=== PATIENT | female | born 1990 | race Caucasian/White ===

== ENCOUNTER 2017-02-19 20:37 | Emergency (ER) | payer OTHER ==
[~2017-02-19 20:37] MED LIST: ALBUTEROL HFA60 DOSE IN; BACTRIM DS1 TAB PO; CATAPRES0.2 MG PO; FLEXERIL PO; HYDROMORPHONE HC2 MG PO; NEURONTIN300 MG PO; OXYCONTIN CR10 MG PO; TRAZODONE HCL100 MG PO; ZOLOFT50 MG PO
--- NOTE | 2017-02-19 22:07 | ED ORDER SUMMARY ---
..... Patient: BROOK KERANEY OrderSheet [facility] VisitID: [id number] [place] [address] 26y, F Registration Date/Time: 02/19/2017 ORDER SHEET Weight: 131.5 kg (stated) Allergies: Amoxicillin, Compazine, Latex, Metformin, Methocarbamol, Morphine Sulfate, Phenergan GENERAL ORDERS: CBC w Diff Urgent (20:53 02/19/2017 HBivens A.R.N.P.) (Ack 20:54 CHagerty ER Probate Lawyer) (21:06 JQuivey R.N.) CMP Urgent (20:53 02/19/2017 HBivens A.R.N.P.) (Ack 20:54 CHagerty ER Probate Lawyer) (21:06 JQuivey R.N.) UA-Culture if indicated Urgent (20:53 02/19/2017 HBivens A.R.N.P.) (Ack 20:54 CHagerty ER Probate Lawyer) (20:58 JQuivey R.N.) Amylase Urgent (20:53 02/19/2017 HBivens A.R.N.P.) (Ack 20:54 CHagerty ER Probate Lawyer) (21:06 JQuivey R.N.) Lipase Urgent (20:53 02/19/2017 HBivens A.R.N.P.) (Ack 20:54 CHagerty ER Probate Lawyer) (21:06 JQuivey R.N.) Urine Urgent (20:53 02/19/2017 HBivens A.R.N.P.) (Ack 20:54 CHagerty ER Probate Lawyer) (20:58 JQuivey R.N.) Urine Drug Screen Urgent (20:53 02/19/2017 HBivens A.R.N.P.) (Ack 20:54 CHagerty ER Probate Lawyer) (20:58 JQuivey R.N.) MEDICATION ORDERS: Ibuprofen PO 800 mg (NOW) (22:46 02/19/2017 JQuivey R.N. verbal order read back to HBivens A.R.N.P.) (Ack 22:46 JQuivey R.N.) (22:48 JQuivey R.N.) IV FLUIDS: Toradol IV 30 mg (NOW) (20:53 02/19/2017 HBivens A.R.N.P.) (Ack 20:58 JQuivey R.N.) (21:09 JQuivey R.N.) Zofran IV 4 mg (NOW) (20:53 02/19/2017 HBivens A.R.N.P.) (Ack 20:58 JQuivey R.N.) (21:09 JQuivey R.N.) IV Saline Lock (20:53 02/19/2017 HBivens A.R.N.P.) (Ack 20:58 JQuivey R.N.) (21:06 JQuivey R.N.) Levofloxacin IV 500 mg/100mL (NOW) (22:06 02/19/2017 HBivens A.R.N.P.) (Ack 22:22 JQuivey R.N.) (22:42 JQuivey R.N.) ORDER SHEET NOTES: [Electronically signed by Flex Singleton R.N. (01:57 02/20/2017)] [Electronically signed by Naty Mello.R.N.P. (13:16 02/20/2017)] [Electronically locked/signed by Flex Singleton R.N. (01:57 02/20/2017)]
--- NOTE | 2017-02-19 22:07 | ED ORDER SUMMARY ---
..... Patient: BROOK KEARNEY OrderSheet [facility] VisitID: [id number] [place] [address] 26y, F Registration Date/Time: 02/19/2017 ORDER SHEET Weight: 131.5 kg (stated) Allergies: Amoxicillin, Compazine, Latex, Metformin, Methocarbamol, Morphine Sulfate, Phenergan GENERAL ORDERS: CBC w Diff Urgent (20:53 02/19/2017 HBivens A.R.N.P.) (Ack 20:54 CHagerty ER Crm Specialist) (21:06 JQuivey R.N.) CMP Urgent (20:53 02/19/2017 HBivens A.R.N.P.) (Ack 20:54 CHagerty ER Crm Specialist) (21:06 JQuivey R.N.) UA-Culture if indicated Urgent (20:53 02/19/2017 HBivens A.R.N.P.) (Ack 20:54 CHagerty ER Crm Specialist) (20:58 JQuivey R.N.) Amylase Urgent (20:53 02/19/2017 HBivens A.R.N.P.) (Ack 20:54 CHagerty ER Crm Specialist) (21:06 JQuivey R.N.) Lipase Urgent (20:53 02/19/2017 HBivens A.R.N.P.) (Ack 20:54 CHagerty ER Crm Specialist) (21:06 JQuivey R.N.) Urine Urgent (20:53 02/19/2017 HBivens A.R.N.P.) (Ack 20:54 CHagerty ER Crm Specialist) (20:58 JQuivey R.N.) Urine Drug Screen Urgent (20:53 02/19/2017 HBivens A.R.N.P.) (Ack 20:54 CHagerty ER Crm Specialist) (20:58 JQuivey R.N.) MEDICATION ORDERS: Ibuprofen PO 800 mg (NOW) (22:46 02/19/2017 JQuivey R.N. verbal order read back to HBivens A.R.N.P.) (Ack 22:46 JQuivey R.N.) (22:48 JQuivey R.N.) IV FLUIDS: Toradol IV 30 mg (NOW) (20:53 02/19/2017 HBivens A.R.N.P.) (Ack 20:58 JQuivey R.N.) (21:09 JQuivey R.N.) Zofran IV 4 mg (NOW) (20:53 02/19/2017 HBivens A.R.N.P.) (Ack 20:58 JQuivey R.N.) (21:09 JQuivey R.N.) IV Saline Lock (20:53 02/19/2017 HBivens A.R.N.P.) (Ack 20:58 JQuivey R.N.) (21:06 JQuivey R.N.) Levofloxacin IV 500 mg/100mL (NOW) (22:06 02/19/2017 HBivens A.R.N.P.) (Ack 22:22 JQuivey R.N.) (22:42 JQuivey R.N.) ORDER SHEET NOTES: [Electronically signed by Flex Singleton R.N. (01:57 02/20/2017)] [Electronically signed by Naty Mello.R.N.P. (13:16 02/20/2017)] [Electronically locked/signed by Flex Singleton R.N. (01:57 02/20/2017)]
--- NOTE | 2017-02-19 22:07 | ED CLINICAL REPORT ---
Clinical Report - Physicians/Mid Levels [facility] [address] [place] [address] 02/19/2017 20:37 Patient: BROOK KEARNEY Time Seen: 2042; upon arrival, initial patient contact, initial documentation, patient care assumed. Arrived- By private vehicle. Historian- patient. HISTORY OF PRESENT ILLNESS Chief Complaint: ABDOMINAL PAIN and FLANK PAIN. At its maximum, severity described as severe. When seen in the E.D., severity described as severe. Modifying factors- worsened by movement. Not relieved by anything. It is described as "pain". No radiation. It is described as located in the left upper quadrant and left abdomen and the left flank. This started years and is still present. It was abrupt in onset and has been constant. The patient has had nausea. No loss of appetite. She has had vomiting (x3 episodes today). No bilious emesis, feculent emesis, blood-tinged emesis, coffee-grounds emesis or frankly bloody emesis. No unusually dark emesis. She has had loose stools. This has occurred twice. No bloody, watery, mucous containing or blood-tinged diarrhea. No additional abdominal pain. (says she suffers from chronic abd issues to enlarged colon and spleen). No recent travel. Similar symptoms previously: Chronically, milder. Recent medical care: The patient was seen recently in the office. ( saw gi dr recently). REVIEW OF SYSTEMS No constipation, black stools, hematemesis, difficulty with urination or pain with urination. No urinary frequency, bloody stools, fever, chest pain or difficulty breathing. Denies current . All systems otherwise negative, except as recorded above. PAST HISTORY See nurses notes. PROBLEMS: Rheumatoid Arthritis. Dysfunctional Uterine Bleeding. Abnormal Liver Function Test. Mesenteric Lymphadenitis. DVT - Deep Venous Thrombosis. Atypical Chest Pain. Gastroenteritis. UTI - Urinary Tract Infection. Hypertension. Hip dysplasia. Obesity. Chronic Back Pain. Asthma. --20:54 Flex Singleton, RLuigiN. 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 No alcohol use or drug use. No recent travel. Is a local resident. FAMILY HISTORY Negative. ADDITIONAL NOTES The nursing notes have been reviewed with agreement regarding the chief complaint, HPI, ROS, PMH and patient medications and allergies. PHYSICAL EXAM Appearance: Alert. Oriented X3. No acute distress. Anxious. Eyes: Pupils equal, round and reactive to light. Eyes normal inspection. Neck: Normal inspection. Neck supple. CVS: Normal heart rate and rhythm. Heart sounds normal. Pulses normal. Respiratory: No respiratory distress. Breath sounds normal. Chest nontender. Abdomen: Soft. Mild tenderness in the left upper quadrant and left side of the abdomen. Bowel sounds normal. No organomegaly. No mass. Severely obese. Tenderness present. Back: Abnormal inspection. Mild CVA tenderness on the left. Skin: Skin warm and dry. Normal skin color. No rash. Normal skin turgor. Extremities: Extremities exhibit normal ROM. No lower extremity edema. Neuro: Oriented X 3. No motor deficit. No sensory deficit. LABS, X-RAYS, AND EKG Laboratory Tests: UA-Culture if indicated: (JAKY: 02/19/2017 20:50) ( [facility] [place] 02/19[place] 21:39) Final results Test Result Flag Units (Reference) URINE COLOR YELLOW URINE APPEARANCE SL CLOUDY URINE GLUCOSE NEGATIVE (NEGATIVE) URINE BILIRUBIN NEGATIVE (NEGATIVE) URINE KETONE NEGATIVE (NEGATIVE) URINE SPECIFIC GRAVITY >= 1.030 (1.010-1.030) URINE PH 6.0 (5.0-8.0) URINE PROTEIN TRACE (NEGATIVE) URINE UROBILINOGEN 0.2 EU/dL (0.2-1.0) URINE NITRITE POSITIVE (NEGATIVE) URINE BLOOD TRACE-LYSED (NEGATIVE) URINE LEUK ESTERASE POSITIVE (NEGATIVE) URINE RBC 3-5 rbc/hpf (0-1) URINE WBC 25-50 wbc/hpf (0-1) URINE EPITHELIAL CELLS 3-5 EPI/hpf (0-5) URINE BACTERIA MANY (4+) (NONE SEEN) URINE COMMENT CULTURE INDICATED URINE CULTURES ARE SET-UP BASED ON THE FOLLOWING CRITERIA:POSITIVE NITRITEPOSITIVE LEUKOCYTE ESTERASEGREATER THAN 10 WHITE BLOOD CELLSMODERATE (2+) OR GREATER BACTERIA Urine: (JAKY: 02/19/2017 20:50) ( Msg[place]cvd 02/19/2017 21:23) Final results Test Result Flag Units (Reference) URINE NEGATIVE CBC w Diff: (JAKY: 02/19/2017 21:02) ( MsgRcvd 02/19/2017 21:23) Final results Test Result Flag Units (Reference) WHITE BLOOD COUNT 14.4 H K/uL (4.5-11.5) RED BLOOD COUNT 5.29 H M/uL (4.00-5.20) HEMOGLOBIN 13.3 gm/dL (12.0-16.0) HEMATOCRIT 40.5 % (36.0-46.0) MEAN CELL VOLUME 77 L fL (80-100) MEAN CORPUSCULAR HGB 25 L pg (26-34) MEAN CORPUSCULAR HGB CONC 33 g/dL (31-37) RED CELL DISTRIBUTION WIDTH 15.3 H % (11.6-14.8) PLATELET COUNT 547 H K/uL (150-400) NEUTROPHIL % 66.4 % (50-75) LYMPH % 29.2 % (25-40) MONO % 4.0 % (3-14) EOSINOPHIL % 0.1 % (0-4) BASOPHIL % 0.3 % (0-2) Urine Drug Screen: (JAKY: 02/19/2017 20:50) ( MsgRcvd 02/19/2017 21:56) Final results Test Result Flag Units (Reference) AMPHETAMINE/METHAMPHETAMINE NEGATIVE (NEGATIVE) BARBITURATE NEGATIVE (NEGATIVE) BENZODIAZEPINE NEGATIVE (NEGATIVE) CANNABINOID NEGATIVE (NEGATIVE) COCAINE NEGATIVE (NEGATIVE) ECSTASY NEGATIVE (NEGATIVE) METHADONE NEGATIVE (NEGATIVE) OPIATE NEGATIVE (NEGATIVE) The urine drug screen is a qualitative screening test fordrug overdose and abuse. All screen results should beconsidered as presumptive.Drugs screened for are as follows:BenzodiazepinesCocaineAmphetamines/MetamphetaminesTHC (Tetrahydrocannabinol)OpiatesBarbituratesEcstasyMethadonePositive results are unconfirmed. For confirmation, notifythe lab for the specimen to be sent to the reference lab.All confirmations must be performed by a differentmethodology.The ingestion of natural herbal and plant productscontaining Ephedra/Ephedra metabolites can produce in urineone or more substances capable of cross reacting withamphetamine/methamphetamine immunoassays. These testsprovide a preliminary result only. A more specificalternative chemical method must be used to obtain aconfirmed analytical result. CMP: (JAKY: 02/19/2017 21:02) ( MsgRcvd 02/19/2017 21:44) Final results Test Result Flag Units (Reference) GLUCOSE 109 mg/dL (70-110) BUN 7 mg/dL (7-18) CREATININE 0.8 mg/dL (0.6-1.3) Estimated GFR >60 mL/min Estimated GFR- >60 mL/min Note: Persistent reduction over 3 months in eGFR<60 mL/min/1.73 m2 defines CKD. Patients with eGFR values>=60 mL/min/1.73 m2 may also have CKD if evidence ofpersistent proteinuria. Additional information may be foundat www.kidney.org. SODIUM 139 mmol/L (136-145) POTASSIUM 3.3 L mmol/L (3.5-5.1) CHLORIDE 103 mmol/L (98-107) CARBON DIOXIDE 19 L mmol/L (21-32) CALCIUM 9.3 mg/dL (8.5-10.1) TOTAL PROTEIN 8.6 H g/dL (6.4-8.2) ALBUMIN 3.9 g/dL (3.3-5.0) BILIRUBIN, TOTAL 0.4 mg/dL (0.0-1.0) ALKALINE PHOSPHATASE 139 H U/L (46-116) AST (SGOT) 98 H U/L (15-37) ALT (SGPT) 218 H U/L (12-78) LIPASE 123 U/L (73-393) AMYLASE 106 U/L (25-115) . PROGRESS AND PROCEDURES Course of Care: pt well known to er staff per nurses, pt is maxed out on narcotic/controlled substances here x2 in Aug 22 and April 22. Patient counseled in person regarding the patient's stable condition, test results and diagnosis. 21:57. Differential Diagnosis: I considered gastritis, gastroenteritis, acute appendicitis, diverticulitis, colon cancer, ulcerative colitis, Crohn's disease, biliary colic, cholecystitis, cholelithiasis, hepatitis, pancreatitis, common bile duct obstruction, splenic infarction, splenic abscess, hernia, urinary tract infection, ureterolithiasis, ovarian cyst, ovarian torsion, , ectopic , endometriosis and viral syndrome as a possible cause of abdominal pain in this patient. This is a partial list of diagnoses considered. Above considerations are based on history, physical exam and laboratory data. Differential diagnosis was discussed with patient. Disposition: Discharged home in good and improved condition (22:06). Condition: good and stable. CLINICAL IMPRESSION Acute pyelonephritis INSTRUCTIONS Alternate Tylenol (Acetaminophen) and Motrin (Ibuprofen) for fever, temperature greater than 101 degrees orally. Take according to label instructions. Drink plenty of fluids for the next 24 hours until better. Warnings: GENERAL WARNINGS: Return or contact your physician immediately if your condition worsens or changes unexpectedly, if not improving as expected, or if other problems arise. SPECIFICALLY, return if you develop pain in the abdomen, fever, the inability to keep fluids down, blood in vomitus, blood in diarrhea, fainting or lightheadedness. Prescription Medications: Zofran 4 mg: Take 1 orally every six hours as needed for nausea/vomiting. Dispense ten (10). No refills. Substitution is permissible. Cipro 500 mg: take 1 tab orally every 12 hours for 10 days. Dispense twenty (20). No refills. Substitution is permissible. Follow-up: Follow up with your doctor Tuesday even if well. Call for an appointment. Summary of care provided to patient. Understanding of the discharge instructions verbalized by patient. (Electronically signed by Naty Mello A.R.N.P. 02/20/2017 13:16)
--- NOTE | 2017-02-19 22:07 | ED NURSING NOTES ---
Clinical Report - Nurses [facility] [address] [place] [address] 02/19/2017 20:37 Patient: BROOK KEARNEY TRIAGE Triage time 20:43. Acuity: LEVEL 3. Chief Complaint: ABDOMINAL PAIN and LEFT-SIDED FLANK PAIN. 20:56. Alert. SEPSIS SCREEN: Sepsis Screen. Negative (no infection suspected/documented). --20:56 Flex Singleton R.N. 20:45 02/19/17. BP: 145/108. HR: 113. RR: 17. O2 saturation: 99%. Temp: 98.2 F (oral). Pain level now: 08/16. --20:56 Flex Singleton R.N. Chief Complaint: NAUSEA, VOMITING and DIARRHEA. --20:57 Flex Singleton R.N. Weight: 131.5 kg stated. Height/Length: 65 inches Per Patient. BMI: 48.3. --20:55 Flex Singleton R.N. Medications Albuterol Sulfate HFA Inhalation, as needed (neb used as well at times). Gabapentin Oral 300 mg, 3x a day. QUEtiapine Fumarate Oral. Sertraline HCl Oral 250mg at HS . TraZODone HCl Oral 200mg , at bedtime. --20:52 Flex Singleton R.N. Promethazine HCl Oral 25 mg, 4x a day. --20:52 Flex Singleton R.N. FentaNYL Transdermal 12mcg/hr, every 72 hours. --20:53 Flex Singleton R.N. Medication/allergy information source: the patient. --20:56 Flex Singleton R.N. Allergies Amoxicillin. Compazine. Latex. Metformin. Methocarbamol. Morphine Sulfate. Phenergan. Definite Moderate(hives, rash) --20:49 Flex Singleton R.N. History Arrived by private vehicle. Historian: patient. Accompanied by friend. Primary physician (Robert). Onset. (Patient reports ongoing problem). Treatment MEASUREMENT COORDINATOR: (Fentanyl patch). PAST MEDICAL HX: Immunizations: up-to-date. Last normal menstrual period was 1 week ago. SOCIAL HX: Current every day heavy tobacco smoker- less than 1 pack per day. No alcohol use or drug use. No infectious disease exposure. ABUSE ASSESSMENT: No report of abuse. FALL RISK ASSESSMENT: Fall risk assessment completed. No fall risk identified. NUTRITIONAL RISK ASSESSMENT: The nutritional risk assessment revealed no deficiencies. FUNCTIONAL ASSESSMENT: Functional assessment: no impairments noted. LEARNING NEEDS ASSESSMENT: The learning needs assessment revealed no barriers. SKIN INTEGRITY ASSESSMENT: Skin integrity risk assessment completed. No skin integrity risk identified. --20:56 Flex Singleton R.N. PROBLEMS: Rheumatoid Arthritis. Dysfunctional Uterine Bleeding. Abnormal Liver Function Test. Mesenteric Lymphadenitis. DVT - Deep Venous Thrombosis. Atypical Chest Pain. Gastroenteritis. UTI - Urinary Tract Infection. Hypertension. Hip dysplasia. Obesity. Chronic Back Pain. Asthma. --20:54 Flex Singleton R.N. Interventions ID band on patient. To treatment room. --20:56 Flex Singleton R.N. PHYSICAL ASSESSMENT 20:45. To room via wheelchair. Patient gowned. GENERAL / NEURO / PSYCH: Alert. Oriented X 4. HEENT: Mucous membranes are pink. RESPIRATORY: Respirations not labored. SKIN: Skin is warm and dry. ( Fentanyl patch on right chest). --20:50 Flex Singleton R.N. NURSING PROGRESS NOTES 20:44. Patient ID band checked for patient name and birthdate: patient confirmed. Clean catch urine collected with return of yellow-colored clear urine; sample sent to lab for urinalysis. Specimen labeled in the presence of the patient. --20:56 Flex Singleton R.N. 21:01 02/19/2017 Site #1 started via IV in the right wrist with an 20g angiocath, with aseptic technique and good blood return; one attempt. Blood drawn: rainbow set. Labeled in the presence of the patient and sent to the lab. Saline lock flushed with 10 mL saline. --21:06 Flex Singleton R.N. 21:03 02/19/2017 Zofran (Ondansetron HCl) IVP 4 mg given over 2 minute(s) via site #1. Allergies verified and confirmed 5 rights. IV patency established. IV site checked: no pain, redness, or swelling. IV flushed thoroughly pre- and post-medication administration. --21:09 Flex Singleton R.N. 21:05 02/19/2017 Toradol IVP 30 mg given over 2 minute(s) via site #1. Allergies verified and confirmed 5 rights. IV patency established. IV site checked: no pain, redness, or swelling. IV flushed thoroughly pre- and post-medication administration. --21:09 Flex Singleton R.N. 21:38 02/19/2017 Zofran IVP Response: symptoms have improved (pt reports nausea is better). --21:38 Flex Singleton R.N. The patient is calm and resting quietly. SKIN: Skin is warm and dry. Skin color within normal limits. --21:38 Flex Singleton R.N. 21:37 02/19/17. BP: 172/91. HR: 103. RR: 18. O2 saturation: 98% on room air. --21:38 Flex Singleton R.N. 22:37 02/19/2017 Started 500 mg of Levofloxacin IVPB in bag #1 100 mL; at 100 mL/hr over 1 hour(s) via site #1 via IV pump. Allergies verified and confirmed 5 rights. IV patency established. IV site checked: no pain, redness, or swelling. IV flushed thoroughly pre- and post-medication administration. --22:42 Flex Singleton R.N. 22:48 02/19/2017 Ibuprofen PO 800 mg given. Allergies verified and confirmed 5 rights. --22:48 Flex Singleton R.N. 23:34. The patient is calm and resting quietly. Overall patient status is improved- she states feels better. SKIN: Skin is warm and dry. Skin color within normal limits. --23:37 Flex Singleton R.N. DISPOSITION / DISCHARGE 23:25 02/19/2017 Levofloxacin IVPB Discontinued: bag #1 infused. Total amount infused: 100 mL. IV patency established. IV site checked: no pain, redness, or swelling. IV flushed thoroughly. --23:30 Flex Singleton R.N. 23:27 02/19/2017 Site #1 removed upon discharge. Catheter intact. Bandage applied. --23:30 Flex Singleton R.N. Departure time: 23:37. Condition at departure: stable. No learning barriers present. Discharge instructions provided and reviewed with the patient. Reviewed medication(s) side effects, precautions, dosing and course information. Prescription(s) given to the patient. Patient verbalized understanding. Written instructions provided in Kyrgyz. The patient was discharged home and accompanied by drainage inspector. She left the Emergency Department ambulatory and via private vehicle. [employer] Displays Analyst driving. FALL RISK ASSESSMENT: Fall risk assessment completed. No fall risk identified. --23:37 Flex Singleton R.N. 23:28 02/19/17. BP: 142/85. HR: 98. RR: 16. O2 saturation: 98%. Pain level now: 03/16. --23:37 Flex Singleton R.N. Locked/Released at 02/20/2017 1:57 by Flex Singleton R.N.
--- NOTE | 2017-02-19 22:07 | ED NURSING NOTES ---
Clinical Report - Nurses [facility] [address] [place] [address] 02/19/2017 20:37 Patient: BROOK KEARNEY TRIAGE Triage time 20:43. Acuity: LEVEL 3. Chief Complaint: ABDOMINAL PAIN and LEFT-SIDED FLANK PAIN. 20:56. Alert. SEPSIS SCREEN: Sepsis Screen. Negative (no infection suspected/documented). --20:56 Flex Singleton R.N. 20:45 02/19/17. BP: 145/108. HR: 113. RR: 17. O2 saturation: 99%. Temp: 98.2 F (oral). Pain level now: 08/16. --20:56 Flex Singleton R.N. Chief Complaint: NAUSEA, VOMITING and DIARRHEA. --20:57 Flex Singleton R.N. Weight: 131.5 kg stated. Height/Length: 65 inches Per Patient. BMI: 48.3. --20:55 Flex Singleton R.N. Medications Albuterol Sulfate HFA Inhalation, as needed (neb used as well at times). Gabapentin Oral 300 mg, 3x a day. QUEtiapine Fumarate Oral. Sertraline HCl Oral 250mg at HS . TraZODone HCl Oral 200mg , at bedtime. --20:52 Flex Singleton R.N. Promethazine HCl Oral 25 mg, 4x a day. --20:52 Flex Singleton R.N. FentaNYL Transdermal 12mcg/hr, every 72 hours. --20:53 Flex Singleton R.N. Medication/allergy information source: the patient. --20:56 Flex Singleton R.N. Allergies Amoxicillin. Compazine. Latex. Metformin. Methocarbamol. Morphine Sulfate. Phenergan. Definite Moderate(hives, rash) --20:49 Flex Singleton R.N. History Arrived by private vehicle. Historian: patient. Accompanied by friend. Primary physician (Robert). Onset. (Patient reports ongoing problem). Treatment CARPENTERS: (Fentanyl patch). PAST MEDICAL HX: Immunizations: up-to-date. Last normal menstrual period was 1 week ago. SOCIAL HX: Current every day heavy tobacco smoker- less than 1 pack per day. No alcohol use or drug use. No infectious disease exposure. ABUSE ASSESSMENT: No report of abuse. FALL RISK ASSESSMENT: Fall risk assessment completed. No fall risk identified. NUTRITIONAL RISK ASSESSMENT: The nutritional risk assessment revealed no deficiencies. FUNCTIONAL ASSESSMENT: Functional assessment: no impairments noted. LEARNING NEEDS ASSESSMENT: The learning needs assessment revealed no barriers. SKIN INTEGRITY ASSESSMENT: Skin integrity risk assessment completed. No skin integrity risk identified. --20:56 Flex Singleton R.N. PROBLEMS: Rheumatoid Arthritis. Dysfunctional Uterine Bleeding. Abnormal Liver Function Test. Mesenteric Lymphadenitis. DVT - Deep Venous Thrombosis. Atypical Chest Pain. Gastroenteritis. UTI - Urinary Tract Infection. Hypertension. Hip dysplasia. Obesity. Chronic Back Pain. Asthma. --20:54 Flex Singleton R.N. Interventions ID band on patient. To treatment room. --20:56 Flex Singleton R.N. PHYSICAL ASSESSMENT 20:45. To room via wheelchair. Patient gowned. GENERAL / NEURO / PSYCH: Alert. Oriented X 4. HEENT: Mucous membranes are pink. RESPIRATORY: Respirations not labored. SKIN: Skin is warm and dry. ( Fentanyl patch on right chest). --20:50 Flex Singleton R.N. NURSING PROGRESS NOTES 20:44. Patient ID band checked for patient name and birthdate: patient confirmed. Clean catch urine collected with return of yellow-colored clear urine; sample sent to lab for urinalysis. Specimen labeled in the presence of the patient. --20:56 Flex Singleton R.N. 21:01 02/19/2017 Site #1 started via IV in the right wrist with an 20g angiocath, with aseptic technique and good blood return; one attempt. Blood drawn: rainbow set. Labeled in the presence of the patient and sent to the lab. Saline lock flushed with 10 mL saline. --21:06 Flex Singleton R.N. 21:03 02/19/2017 Zofran (Ondansetron HCl) IVP 4 mg given over 2 minute(s) via site #1. Allergies verified and confirmed 5 rights. IV patency established. IV site checked: no pain, redness, or swelling. IV flushed thoroughly pre- and post-medication administration. --21:09 Flex Singleton R.N. 21:05 02/19/2017 Toradol IVP 30 mg given over 2 minute(s) via site #1. Allergies verified and confirmed 5 rights. IV patency established. IV site checked: no pain, redness, or swelling. IV flushed thoroughly pre- and post-medication administration. --21:09 Flex Singleton R.N. 21:38 02/19/2017 Zofran IVP Response: symptoms have improved (pt reports nausea is better). --21:38 Flex Singleton R.N. The patient is calm and resting quietly. SKIN: Skin is warm and dry. Skin color within normal limits. --21:38 Flex Singleton R.N. 21:37 02/19/17. BP: 172/91. HR: 103. RR: 18. O2 saturation: 98% on room air. --21:38 Flex Singleton R.N. 22:37 02/19/2017 Started 500 mg of Levofloxacin IVPB in bag #1 100 mL; at 100 mL/hr over 1 hour(s) via site #1 via IV pump. Allergies verified and confirmed 5 rights. IV patency established. IV site checked: no pain, redness, or swelling. IV flushed thoroughly pre- and post-medication administration. --22:42 Flex Singleton R.N. 22:48 02/19/2017 Ibuprofen PO 800 mg given. Allergies verified and confirmed 5 rights. --22:48 Flex Singleton R.N. 23:34. The patient is calm and resting quietly. Overall patient status is improved- she states feels better. SKIN: Skin is warm and dry. Skin color within normal limits. --23:37 Flex Singleton R.N. DISPOSITION / DISCHARGE 23:25 02/19/2017 Levofloxacin IVPB Discontinued: bag #1 infused. Total amount infused: 100 mL. IV patency established. IV site checked: no pain, redness, or swelling. IV flushed thoroughly. --23:30 Flex Singleton R.N. 23:27 02/19/2017 Site #1 removed upon discharge. Catheter intact. Bandage applied. --23:30 Flex Singleton R.N. Departure time: 23:37. Condition at departure: stable. No learning barriers present. Discharge instructions provided and reviewed with the patient. Reviewed medication(s) side effects, precautions, dosing and course information. Prescription(s) given to the patient. Patient verbalized understanding. Written instructions provided in Faroese. The patient was discharged home and accompanied by telephone directory distributor driver. She left the Emergency Department ambulatory and via private vehicle. Line Erector driving. FALL RISK ASSESSMENT: Fall risk assessment completed. No fall risk identified. --23:37 Flex Singleton R.N. 23:28 02/19/17. BP: 142/85. HR: 98. RR: 16. O2 saturation: 98%. Pain level now: 03/16. --23:37 Flex Singleton R.N. Locked/Released at 02/20/2017 1:57 by Flex Singleton R.N.
--- NOTE | 2017-02-20 13:17 | ED MAR SUMMARY ---
..... Medication Administration Record [facility] [address] [place] [address] Patient: BROOK KEARNEY Visit ID: [id number] 26y, F Weight: 131.5 kg Height/Length: 65 in BMI: 48.3 ALLERGIES: Amoxicillin, Compazine, Latex, Metformin, Methocarbamol, Morphine Sulfate, Phenergan Given 21:03 02/19/2017 Flex Singleton R.N. Medication Administered: ZOFRAN [IVP] (ONDANSETRON HCL), Dose: 4 mg IVP over 2 minute(s), Site: #1 right wrist. Medication Ordered: Zofran IV 4 mg (NOW). Given 21:05 02/19/2017 Flex Singleton R.N. Medication Administered: TORADOL [IVP], Dose: 30 mg IVP over 2 minute(s), Site: #1 right wrist. Medication Ordered: Toradol IV 30 mg (NOW). Start 22:37 02/19/2017 Flex Singleton R.NLuigi, Stop 23:25 02/19/2017 Flex Singleton R.N. Medication Administered: LEVOFLOXACIN [IVPB], Dose: 500 mg IVPB over 1 hour(s), Rate: 100 mL/hr, Dispensed: 100 mL bag, Site: #1 right wrist. Medication Ordered: Levofloxacin IV 500 mg/100mL (NOW). Given 22:48 02/19/2017 Flex Singleton R.N. Medication Administered: IBUPROFEN [PO], Dose: 800 mg PO. Medication Ordered: Ibuprofen PO 800 mg (NOW).
--- NOTE | 2017-02-20 13:17 | ED MAR SUMMARY ---
..... Medication Administration Record [facility] [address] [place] [address] Patient: BROOK KEARNEY Visit ID: [id number] 26y, F Weight: 131.5 kg Height/Length: 65 in BMI: 48.3 ALLERGIES: Amoxicillin, Compazine, Latex, Metformin, Methocarbamol, Morphine Sulfate, Phenergan Given 21:03 02/19/2017 Flex Singleton R.N. Medication Administered: ZOFRAN [IVP] (ONDANSETRON HCL), Dose: 4 mg IVP over 2 minute(s), Site: #1 right wrist. Medication Ordered: Zofran IV 4 mg (NOW). Given 21:05 02/19/2017 Flex Singleton R.N. Medication Administered: TORADOL [IVP], Dose: 30 mg IVP over 2 minute(s), Site: #1 right wrist. Medication Ordered: Toradol IV 30 mg (NOW). Start 22:37 02/19/2017 Flex Singleton R.NLuigi, Stop 23:25 02/19/2017 Flex Singleton R.N. Medication Administered: LEVOFLOXACIN [IVPB], Dose: 500 mg IVPB over 1 hour(s), Rate: 100 mL/hr, Dispensed: 100 mL bag, Site: #1 right wrist. Medication Ordered: Levofloxacin IV 500 mg/100mL (NOW). Given 22:48 02/19/2017 Flex Singleton R.N. Medication Administered: IBUPROFEN [PO], Dose: 800 mg PO. Medication Ordered: Ibuprofen PO 800 mg (NOW).
--- NOTE | 2017-02-20 13:17 | ED MED RECONCILIATION SUMMARY ---
Patient: BROOK KEARNEY Medication Reconciliation Report [facility] VisitID: [id number] [address] [place] [address] 26y, F Registration Date/Time: 02/19/2017 Weight: 131.5 kg Height/Length: 65 in. BMI: 48.3 ALLERGIES: Amoxicillin, Compazine, Latex, Metformin, Methocarbamol, Morphine Sulfate, Phenergan The patient's Home Medications are listed below: THE FOLLOWING MEDICATIONS NEED TO BE RECONCILED: Albuterol Sulfate HFA Inhalation, neb used as well at times FentaNYL Transdermal 12mcg/hr, every 72 hours Gabapentin Oral 300 mg, 3x a day Promethazine HCl Oral 25 mg, 4x a day QUEtiapine Fumarate Oral Sertraline HCl Oral 250mg at HS TraZODone HCl Oral 200mg , at bedtime The source(s) of the original Home Medication information: patient The following Medications were given to the patient in the Emergency Department: Zofran [IVP] IVP 4 mg, administered: 02/19/2017 9:03:00 PM Toradol [IVP] IVP 30 mg, administered: 02/19/2017 9:05:00 PM Levofloxacin [IVPB] IVPB bolus 0, then 500 mg 100 mL/hr, administered: 02/19/2017 10:37:00 PM Ibuprofen [PO] PO 800 mg, administered: 02/19/2017 10:48:00 PM The following Medications were prescribed to the patient: Zofran 4 mg: Take 1 orally every six hours as needed for nausea/vomiting. Dispense ten (10). No refills. Substitution is permissible. -- Naty Mello A.R.N.P. Cipro 500 mg: take 1 tab orally every 12 hours for 10 days. Dispense twenty (20). No refills. Substitution is permissible. -- Naty Mello A.R.N.P.
--- NOTE | 2017-02-20 13:17 | ED DISCHARGE INSTRUCTIONS ---
Patient: BROOK KEARNEY General Instructions [facility] VisitID: [id number] [place] [address] 26y, F Registration Date/Time: 02/19/2017 Acute pyelonephritis INSTRUCTIONS Alternate Tylenol (Acetaminophen) and Motrin (Ibuprofen) for fever, temperature greater than 101 degrees orally. Take according to label instructions. Drink plenty of fluids for the next 24 hours until better. Warnings: GENERAL WARNINGS: Return or contact your physician immediately if your condition worsens or changes unexpectedly, if not improving as expected, or if other problems arise. SPECIFICALLY, return if you develop pain in the abdomen, fever, the inability to keep fluids down, blood in vomitus, blood in diarrhea, fainting or lightheadedness. Prescription Medications: Zofran 4 mg: Take 1 orally every six hours as needed for nausea/vomiting. Dispense ten (10). No refills. Substitution is permissible. Cipro 500 mg: take 1 tab orally every 12 hours for 10 days. Dispense twenty (20). No refills. Substitution is permissible. Follow-up: Follow up with your doctor Tuesday even if well. Call for an appointment. Summary of care provided to patient. Understanding of the discharge instructions verbalized by patient. ADDITIONAL INFORMATION Kidney Infection [Adult, Female] An infection of the kidney is also called "pyelonephritis". It usually starts as a bladder infection ("cystitis") which spreads to the kidneys. Pyelonephritis is more serious than a bladder infection. It can cause severe illness if not treated properly. The usual symptoms include an aching pain in the back, side or lower abdomen. Other symptoms may include fever, chills, nausea, vomiting, an urge to urinate and a burning sensation when passing urine. Home Care: Stay home from work or school. Rest in bed until your fever breaks and you are feeling better. Drink lots of fluid (at least 6-8 glasses a day, unless you must restrict fluids for other medical reasons). This will force the medicine into your urinary system and flush the bacteria out of your body. Avoid sexual intercourse until you have finished all of your medicine and your symptoms have gone away. Avoid caffeine, alcohol and spicy foods which may irritate the kidney and bladder. You may use acetaminophen (Tylenol) or ibuprofen (Motrin, Advil) to control pain, unless another pain medicine was prescribed. [NOTE: If you have chronic liver or kidney disease or ever had a stomach ulcer or GI bleeding, talk with your doctor before using these medicines.] Follow Up with your doctor or as advised by our staff for a repeat urine test in 10 days. This will ensure that your infection is fully cleared. [NOTE: If you had an X-ray or CT scan, it will be reviewed by a specialist. You will be notified of any new findings that may affect your care.] Get Prompt Medical Attention if any of the following occur: Fever over 100.4F (38.0C) after 48 hours of treatment No improvement by the third day of treatment Increasing back or abdominal pain Repeated vomiting or inability to take oral medicine Weakness, dizziness or fainting Fever Control (Adult) A fever is a natural reaction of the body to an illness. In most cases, the temperature itself is not harmful. It actually helps the body fight infections. A fever does not need to be treated unless you feel very uncomfortable. Home Care If you feel warm, check your temperature. If you feel very uncomfortable and your temperature is at or higher than 100.4F (38C) oral, you may take acetaminophen (Tylenol) every 4 to 6 hours. If you cant take or keep down oral medicine, ask your pharmacist for Tylenol suppositories, which you can get without a prescription. If the fever does not respond to acetaminophen within 1 hour, take ibuprofen (Advil or Motrin). If this works, keep taking the ibuprofen every 6 to 8 hours. Note: If you have chronic liver or kidney disease or ever had a stomach ulcer or GI bleeding, talk with your doctor before using these medications. If either medication alone does not keep the fever down, you may alternate the two medicines every 3 to 4 hours, only if your healthcare provider has instructed you to do so. For example, take Motrin then wait 3 hours, take Tylenol then wait 3 hours, take Motrin, and so on. Follow your healthcare providers instructions exactly. Clothing: Keep clothing light because excess body heat is lost through the skin. The fever will go up if you wear extra layers or wrap in blankets. Fluids: Fever causes the body to lose water through evaporation. Drink plenty of fluids such as water, juice, clear sodas, katelynn georgiana, or lemonade. Do not use aspirin in anyone under 18 years of age who is ill with a fever. It can cause severe liver damage. Follow Up with your doctor or as advised by our staff if you do not get better after 48 hours. Get Prompt Medical Attention if any of the following occur: Fever does not get better after taking fever medication Fast or difficult breathing Earache, sinus pain, stiff or painful neck, headache, repeated diarrhea or vomiting You feel unusually irritable, drowsy, or confused A rash appears You feel weak or dizzy, or that you might faint Ondansetron Oral disintegrating tablet What is this medicine? ONDANSETRON (on GOPI se bro) is used to treat nausea and vomiting caused by chemotherapy. It is also used to prevent or treat nausea and vomiting after surgery. How should I use this medicine? These tablets are made to dissolve in the mouth. Do not try to push the tablet through the foil backing. With dry hands, peel away the foil backing and gently remove the tablet. Place the tablet in the mouth and allow it to dissolve, then swallow. While you may take these tablets with water, it is not necessary to do so. Talk to your vice president global digital marketing regarding the use of this medicine in children. Special care may be needed. What side effects may I notice from receiving this medicine? Side effects that you should report to your doctor or health career information specialist as soon as possible: allergic reactions like skin rash, itching or hives, swelling of the face, lips, or tongue breathing problems dizziness fast or irregular heartbeat feeling faint or lightheaded, falls fever and chills swelling of the hands and feet tightness in the chest Side effects that usually do not require medical attention (report to your doctor or health career information specialist if they continue or are bothersome): constipation or diarrhea headache What may interact with this medicine? Do not take this medicine with any of the following medications: -apomorphine -cisapride -dofetilide -dronedarone -pimozide -thioridazine -ziprasidone This medicine may also interact with the following medications: -carbamazepine -phenytoin -rifampicin -tramadol -other medicines that prolong the QT interval (cause an abnormal heart rhythm) What if I miss a dose? If you miss a dose, take it as soon as you can. If it is almost time for your next dose, take only that dose. Do not take double or extra doses. Where should I keep my medicine? Keep out of the reach of children. Store between 2 and 30 degrees C (36 and 86 degrees F). Throw away any unused medicine after the expiration date. What should I tell my health care provider before I take this medicine? They need to know if you have any of these conditions: heart disease history of irregular heartbeat liver disease low levels of magnesium or potassium in the blood an unusual or allergic reaction to ondansetron, granisetron, other medicines, foods, dyes, or preservatives or trying to get breast-feeding What should I watch for while using this medicine? Check with your doctor or health career information specialist as soon as you can if you have any sign of an allergic reaction. Ciprofloxacin Hydrochloride Oral tablet What is this medicine? CIPROFLOXACIN (sip valerie FLOX a sin) is a quinolone antibiotic. It is used to treat certain kinds of bacterial infections. It will not work for colds, flu, or other viral infections. How should I use this medicine? Take this medicine by mouth with a glass of water. Follow the directions on the prescription label. Take your medicine at regular intervals. Do not take your medicine more often than directed. Take all of your medicine as directed even if you think your are better. Do not skip doses or stop your medicine early. You can take this medicine with food or on an empty stomach. It can be taken with a meal that contains dairy or calcium, but do not take it alone with a dairy product, like milk or yogurt or calcium-fortified juice. A special MedGuide will be given to you by the pharmacist with each prescription and refill. Be sure to read this information carefully each time. Talk to your vice president global digital marketing regarding the use of this medicine in children. Special care may be needed. What side effects may I notice from receiving this medicine? Side effects that you should report to your doctor or health career information specialist as soon as possible: - allergic reactions like skin rash, itching or hives, swelling of the face, lips, or tongue - breathing problems - confusion, nightmares or hallucinations - feeling faint or lightheaded, falls - irregular heartbeat - joint, muscle or tendon pain or swelling - pain or trouble passing urine -persistent headache with or without blurred vision - redness, blistering, peeling or loosening of the skin, including inside the mouth - seizure - unusual pain, numbness, tingling, or weakness Side effects that usually do not require medical attention (report to your doctor or health career information specialist if they continue or are bothersome): - diarrhea - nausea or stomach upset - white patches or sores in the mouth What may interact with this medicine? Do not take this medicine with any of the following medications: cisapride droperidol terfenadine tizanidine This medicine may also interact with the following medications: antacids caffeine cyclosporin didanosine (ddI) buffered tablets or powder medicines for diabetes medicines for inflammation like ibuprofen, naproxen methotrexate multivitamins omeprazole phenytoin probenecid sucralfate theophylline warfarin What if I miss a dose? If you miss a dose, take it as soon as you can. If it is almost time for your next dose, take only that dose. Do not take double or extra doses. Where should I keep my medicine? Keep out of the reach of children. Store at room temperature below 30 degrees C (86 degrees F). Keep container tightly closed. Throw away any unused medicine after the expiration date. What should I tell my health care provider before I take this medicine? They need to know if you have any of these conditions: -bone problems -cerebral disease -joint problems -irregular heartbeat -kidney disease -liver disease -myasthenia gravis -seizure disorder -tendon problems -an unusual or allergic reaction to ciprofloxacin, other antibiotics or medicines, foods, dyes, or preservatives - or trying to get -breast-feeding What should I watch for while using this medicine? Tell your doctor or health career information specialist if your symptoms do not improve. Do not treat diarrhea with over the counter products. Contact your doctor if you have diarrhea that lasts more than 2 days or if it is severe and watery. You may get drowsy or dizzy. Do not drive, use machinery, or do anything that needs mental alertness until you know how this medicine affects you. Do not stand or sit up quickly, especially if you are an older patient. This reduces the risk of dizzy or fainting spells. This medicine can make you more sensitive to the sun. Keep out of the sun. If you cannot avoid being in the sun, wear protective clothing and use sunscreen. Do not use sun lamps or tanning beds/booths. Avoid antacids, aluminum, calcium, iron, magnesium, and zinc products for 6 hours before and 2 hours after taking a dose of this medicine. You have been given the following additional information: Pyelonephritis, Female (Adult) Fever Control (Adult) Ondansetron Oral disintegrating tablet Ciprofloxacin Hydrochloride Oral tablet (Electronically signed by Naty Mello A.R.N.P. 02/20/2017 13:16)
--- NOTE | 2017-02-20 13:17 | ED MED RECONCILIATION SUMMARY ---
Patient: BROOK KEARNEY Medication Reconciliation Report [facility] VisitID: [id number] [address] [place] [address] 26y, F Registration Date/Time: 02/19/2017 Weight: 131.5 kg Height/Length: 65 in. BMI: 48.3 ALLERGIES: Amoxicillin, Compazine, Latex, Metformin, Methocarbamol, Morphine Sulfate, Phenergan The patient's Home Medications are listed below: THE FOLLOWING MEDICATIONS NEED TO BE RECONCILED: Albuterol Sulfate HFA Inhalation, neb used as well at times FentaNYL Transdermal 12mcg/hr, every 72 hours Gabapentin Oral 300 mg, 3x a day Promethazine HCl Oral 25 mg, 4x a day QUEtiapine Fumarate Oral Sertraline HCl Oral 250mg at HS TraZODone HCl Oral 200mg , at bedtime The source(s) of the original Home Medication information: patient The following Medications were given to the patient in the Emergency Department: Zofran [IVP] IVP 4 mg, administered: 02/19/2017 9:03:00 PM Toradol [IVP] IVP 30 mg, administered: 02/19/2017 9:05:00 PM Levofloxacin [IVPB] IVPB bolus 0, then 500 mg 100 mL/hr, administered: 02/19/2017 10:37:00 PM Ibuprofen [PO] PO 800 mg, administered: 02/19/2017 10:48:00 PM The following Medications were prescribed to the patient: Zofran 4 mg: Take 1 orally every six hours as needed for nausea/vomiting. Dispense ten (10). No refills. Substitution is permissible. -- Naty Mello A.R.N.P. Cipro 500 mg: take 1 tab orally every 12 hours for 10 days. Dispense twenty (20). No refills. Substitution is permissible. -- Naty Mello A.R.N.P.
== END 2017-02-19 23:37 | disposition home or self-care (01) ==
LOC: ED SRH 20:37
DX: N10 Acute pyelonephritis (principal); I10 Essential (primary) hypertension; J45.909 Unspecified asthma, uncomplicated; Z79.899 Other long term (current) drug therapy; F17.210 Nicotine dependence, cigarettes, uncomplicated; Z88.1 Allergy status to other antibiotic agents; Z88.5 Allergy status to narcotic agent; Z88.8 Allergy status to other drugs, medicaments and biological substances; Z91.040 Latex allergy status
CPT/HCPCS: 90004; 90100; 90148; 90469; 92235; 92530; 92760; 92761; 92762; 92763; 92764; 92765; 92766; 92767; 93070; 95059

== ENCOUNTER 2017-04-27 18:05 | Emergency (ER) | payer OTHER ==
--- NOTE | 2017-04-27 19:05 | DIAGNOSTIC IMAGING REPORT ---
PROCEDURE: XR CHEST 1 VIEW INDICATION: VOMITING, SOB TECHNIQUE: Single view chest. 1851 hours COMPARISON: 07/16/2015 FINDINGS: Low lung volumes. Stable cardiomediastinal contour and central vessels without congestion. Right infrahilar atelectatic changes. No convincing consolidation, effusion, or pneumothorax. Intact osseous structures. IMPRESSION: 1. Given low lung volumes, no definite acute cardiopulmonary disease. 2. Right middle lobe atelectatic changes
--- NOTE | 2017-04-27 21:17 | ED ORDER SUMMARY ---
..... Patient: BROOK KEARNEY OrderSheet [facility] VisitID: [id number] [place] [address] 26y, F Registration Date/Time: 04/27/2017 ORDER SHEET Weight: 131.5 kg (stated) Allergies: Amoxicillin, Compazine, Latex, Metformin, Methocarbamol, Morphine Sulfate, Phenergan GENERAL ORDERS: Chest 1V Urgent (18:28 04/27/2017 Maria Esther GODFREY) (Ack 18:41 LNations ER Tech1) (18:50 MCampbell) Road Equipment Operator (Continuous) (18:28 04/27/2017 Maria Esther GODFREY) (Ack 18:29 LNations ER Tech1) (18:33 Nader R.N.) CBC w Diff Urgent (18:28 04/27/2017 Maria Esther GODFREY) (18:39 JRomanelli R.N.) (Ack 18:41 LNations ER Tech1) CMP Urgent (18:28 04/27/2017 Maria Esther GODFREY) (18:40 JRomanelli R.N.) (Ack 18:41 LNations ER Tech1) Amylase Urgent (18:28 04/27/2017 Maria Esther GODFREY) (18:40 JRomanelli R.N.) (Ack 18:41 LNations ER Tech1) Lipase Urgent (18:28 04/27/2017 Maria Esther GODFREY) (18:40 JRomanelli R.N.) (Ack 18:41 LNations ER Tech1) Urine Urgent (18:28 04/27/2017 Maria Esther GODFREY) (Ack 18:41 LNations ER Tech1) (20:45 CBradburn R.N.) Urine Drug Screen Urgent (18:28 04/27/2017 Maria Esther GODFREY) (Ack 18:41 LNations ER Tech1) (20:45 CBradburn R.N.) D-Dimer Urgent (18:28 04/27/2017 Maria Esther GODFREY) (18:40 JRomanelli R.N.) (Ack 18:41 LNations ER Tech1) Troponin-I Urgent (18:28 04/27/2017 Maria Esther GODFREY) (18:40 JRomanelli R.N.) (Ack 18:41 LNations ER Tech1) CPK Urgent (18:28 04/27/2017 Maria Esther GODFREY) (18:40 JRomanelli R.N.) (Ack 18:41 LNations ER Tech1) BNP Urgent (18:28 04/27/2017 Maria Esther GODFREY) (18:40 Audraelli R.N.) (Ack 18:41 LNations ER Tech1) UA-Culture if indicated Urgent (18:28 04/27/2017 Maria Esther GODFREY) (Ack 18:41 LNations ER Tech1) (20:45 CBradburn R.N.) EKG - ER Stat (18:28 04/27/2017 Maria Esther GODFREY) (18:39 Chano R.N.) (Ack 18:41 LNations ER Tech1) Pulse oximeter (18:04/27/2017 Maria Esther GODFREY) (18:33 Nader R.N.) MEDICATION ORDERS: Albuterol Neb Tx 1 unit dose (NOW) (20:51 04/27/2017 Maria Esther GODFREY) (21:12 CBradburn R.N.) Acetaminophen PO 1,000 mg (NOW) (20:51 04/27/2017 Maria Esther GODFREY) (Ack 20:53 Preet R.N.) (21:13 Preet R.N.) IV FLUIDS: IV Saline Lock (18:04/27/2017 Maria Esther GODFREY) (18:42 Chano R.N.) Zofran IV 4 mg (NOW) (20:51 04/27/2017 Maria Esther GODFREY) (Ack 20:53 Preet R.N.) (21:13 Preet R.N.) Solu-MEDROL IV 125 mg (NOW) (20:51 04/27/2017 Maria Esther GODFREY) (Ack 20:53 Preet R.N.) (21:14 CHANNINGradburn R.N.) ORDER SHEET NOTES: [Electronically signed by Veronica Alves R.N. (22:17 04/27/2017)] [Electronically signed by Sharath Woods MD (21:30 04/28/2017)] [Electronically locked/signed by Veronica Alves R.N. (22:17 04/27/2017)]
--- NOTE | 2017-04-27 21:17 | ED ORDER SUMMARY ---
..... Patient: BROOK KEARNEY OrderSheet [facility] VisitID: [id number] [place] [address] 26y, F Registration Date/Time: 04/27/2017 ORDER SHEET Weight: 131.5 kg (stated) Allergies: Amoxicillin, Compazine, Latex, Metformin, Methocarbamol, Morphine Sulfate, Phenergan GENERAL ORDERS: Chest 1V Urgent (18:28 04/27/2017 Maria Esther GODFREY) (Ack 18:41 LNations ER Tech1) (18:50 MCampbell) Machine Sweeper Brush Maker (Continuous) (18:28 04/27/2017 Maria Esther GODFREY) (Ack 18:29 LNations ER Tech1) (18:33 Nader R.N.) CBC w Diff Urgent (18:28 04/27/2017 Maria Esther GODFREY) (18:39 JRomanelli R.N.) (Ack 18:41 LNations ER Tech1) CMP Urgent (18:28 04/27/2017 Maria Esther GODFREY) (18:40 JRomanelli R.N.) (Ack 18:41 LNations ER Tech1) Amylase Urgent (18:28 04/27/2017 Maria Esther GODFREY) (18:40 JRomanelli R.N.) (Ack 18:41 LNations ER Tech1) Lipase Urgent (18:28 04/27/2017 Maria Esther GODFREY) (18:40 JRomanelli R.N.) (Ack 18:41 LNations ER Tech1) Urine Urgent (18:28 04/27/2017 Maria Esther GODFREY) (Ack 18:41 LNations ER Tech1) (20:45 CBradburn R.N.) Urine Drug Screen Urgent (18:28 04/27/2017 Maria Esther GODFREY) (Ack 18:41 LNations ER Tech1) (20:45 CBradburn R.N.) D-Dimer Urgent (18:28 04/27/2017 Maria Esther GODFREY) (18:40 JRomanelli R.N.) (Ack 18:41 LNations ER Tech1) Troponin-I Urgent (18:28 04/27/2017 Maria Esther GODFREY) (18:40 JRomanelli R.N.) (Ack 18:41 LNations ER Tech1) CPK Urgent (18:28 04/27/2017 Maria Esther GODFREY) (18:40 JRomanelli R.N.) (Ack 18:41 LNations ER Tech1) BNP Urgent (18:28 04/27/2017 Maria Esther GODFREY) (18:40 Audraelli R.N.) (Ack 18:41 LNations ER Tech1) UA-Culture if indicated Urgent (18:28 04/27/2017 Maria Esther GODFREY) (Ack 18:41 LNations ER Tech1) (20:45 CBradburn R.N.) EKG - ER Stat (18:28 04/27/2017 Maria Esther GODFREY) (18:39 Chano R.N.) (Ack 18:41 LNations ER Tech1) Pulse oximeter (18:04/27/2017 Maria Esther GODFREY) (18:33 Nader R.N.) MEDICATION ORDERS: Albuterol Neb Tx 1 unit dose (NOW) (20:51 04/27/2017 Maria Esther GODFREY) (21:12 CBradburn R.N.) Acetaminophen PO 1,000 mg (NOW) (20:51 04/27/2017 Maria Esther GODFREY) (Ack 20:53 Preet R.N.) (21:13 Preet R.N.) IV FLUIDS: IV Saline Lock (18:04/27/2017 Maria Esther GODFREY) (18:42 Chano R.N.) Zofran IV 4 mg (NOW) (20:51 04/27/2017 Maria Esther GODFREY) (Ack 20:53 Preet R.N.) (21:13 Preet R.N.) Solu-MEDROL IV 125 mg (NOW) (20:51 04/27/2017 Maria Esther GODFREY) (Ack 20:53 Preet R.N.) (21:14 CHANNINGradburn R.N.) ORDER SHEET NOTES: [Electronically signed by Veronica Alves R.N. (22:17 04/27/2017)] [Electronically signed by Sharath Woods MD (21:30 04/28/2017)] [Electronically locked/signed by Veronica Alves R.N. (22:17 04/27/2017)]
--- NOTE | 2017-04-27 21:17 | ED CLINICAL REPORT ---
Clinical Report - Physicians/Mid Levels [facility] [address] [place] [address] 04/27/2017 18:04 Patient: BROOK KEARNEY Time Seen: 18:25. Arrived- By private vehicle. Historian- patient. HISTORY OF PRESENT ILLNESS Chief Complaint: DYSPNEA and HISTORY OF ASTHMA. This started about 2 days ago and is still present. It was gradual in onset and has been constant and waxing/waning. The dyspnea is severe. The patient has had a cough, fever, wheezing and chills and experienced sweating episodes. No sputum production, calf pain or foot swelling. REVIEW OF SYSTEMS The patient has had fever, chills, chest pain and a cough and experienced sweats. No abdominal pain, constipation, diarrhea, nausea or vomiting. All systems otherwise negative, except as recorded above. PAST HISTORY Medications: Albuterol Sulfate HFA Inhalation, as needed (neb used as well at times). FentaNYL Transdermal 12mcg/hr, every 72 hours. Gabapentin Oral 300 mg, 3x a day. Promethazine HCl Oral 25 mg, 4x a day. QUEtiapine Fumarate Oral. Sertraline HCl Oral 250mg at HS . TraZODone HCl Oral 200mg , at bedtime. Allergies: Amoxicillin. Compazine. Latex. Metformin. Methocarbamol. Morphine Sulfate. Phenergan. Definite Moderate(hives, rash). SOCIAL HISTORY Current every day heavy tobacco smoker (cigarette)- less than 1 pack per day (vapes). No alcohol use or drug use. FAMILY HISTORY Denies family medical history. ADDITIONAL NOTES The nursing notes have been reviewed. PHYSICAL EXAM Vital Signs: 04/27/2017 18:08 BP: 138/94. HR: 116. RR: 23. O2 saturation: 97%. Temp: 98.3 F. Pain level now: 10/10. Have been reviewed. Appearance: Alert. Eyes: Pupils equal, round and reactive to light. ENT: Pharyngeal erythema. Hoarse voice. Pharynx normal. Neck: Normal inspection. No jugular venous distention. CVS: Normal heart rate and rhythm. Heart sounds normal. Respiratory: Prolonged expirations. Decreased air movement. Wheezing present. (rattle over large airways that clears with cough). Abdomen: Soft and nontender. No organomegaly. Obese. Back: Normal inspection. No CVA tenderness. Skin: Skin warm and dry. Normal skin color. Normal skin turgor. Extremities: Extremities exhibit normal ROM. No calf tenderness. No lower extremity edema. LABS, X-RAYS, AND EKG EKG: Rate: 111. Prior EKG unavailable. The study has been independently viewed by me. Chest X-ray: (IMPRESSION: 1. Given low lung volumes, no definite acute cardiopulmonary disease. 2. Right middle lobe atelectatic changes). The X-rays were interpreted by the radiologist and contemporaneously by me. Laboratory Tests: UA-Culture if indicated: (JAKY: 04/27/2017 20:39) ( [facility] 04/27/2017 21:10) IP Test Result Flag Units (Reference) URINE COLOR YELLOW URINE APPEARANCE CLEAR URINE GLUCOSE NEGATIVE (NEGATIVE) URINE BILIRUBIN NEGATIVE (NEGATIVE) URINE KETONE NEGATIVE (NEGATIVE) URINE SPECIFIC GRAVITY 1.015 (1.010-1.030) URINE PH 8.5 H (5.0-8.0) URINE PROTEIN NEGATIVE (NEGATIVE) URINE UROBILINOGEN 0.2 EU/dL (0.2-1.0) URINE NITRITE NEGATIVE (NEGATIVE) URINE BLOOD NEGATIVE (NEGATIVE) URINE LEUK ESTERASE POSITIVE (NEGATIVE) Urine: (JAKY: 04/27/2017 20:39) ( [facility] 04/27/2017 21:11) Final results Test Result Flag Units (Reference) URINE NEGATIVE CBC w Diff: (JAKY: 04/27/2017 18:25) ( [facility] 04/27/2017 19:56) Final results Test Result Flag Units (Reference) WHITE BLOOD COUNT 14.4 H K/uL (4.5-11.5) RED BLOOD COUNT 4.79 M/uL (4.00-5.20) HEMOGLOBIN 11.8 L gm/dL (12.0-16.0) HEMATOCRIT 35.9 L % (36.0-46.0) MEAN CELL VOLUME 75 L fL (80-100) MEAN CORPUSCULAR HGB 25 L pg (26-34) MEAN CORPUSCULAR HGB CONC 33 g/dL (31-37) RED CELL DISTRIBUTION WIDTH 15.1 H % (11.6-14.8) PLATELET COUNT 392 K/uL (150-400) NEUTROPHIL % 84.8 H % (50-75) LYMPH % 10.9 L % (25-40) MONO % 2.5 L % (3-14) EOSINOPHIL % 1.4 % (0-4) BASOPHIL % 0.4 % (0-2) [id number]: (JAKY: 04/27/2017 18:25) ( [facility] 04/27/2017 20:05) Final results Test Result Flag Units (Reference) D-DIMER QUANTITATIVE 0.46 ug/mLFEU (0.27-0.52) The primary value of this quantitative assay relates toits negative predictive value (i.e. exclusion) of pulmonaryembolism/deep vein thrombosis/DIC.Elevated levels of d-dimer may also occur with:, age, cancer, inflammation, liver disease,post-op, infection, hematoma, coronary disease, peripheralarteriopathy, bleeding disorders and thrombolytic treatment.Results should be correlated with other clinical andradiological data.Testing Methodology: Latex Immunoassay BNP: (JAKY: 04/27/2017 18:25) ( [facility] 04/27/2017 20:29) Final results Test Result Flag Units (Reference) B-TYPE NATRIURETIC PEPTIDE 304 H pg/ml (5-100) CMP: (JAKY: 04/27/2017 18:25) ( [facility] 04/27/[place] 20:27) Final results Test Result Flag Units (Reference) GLUCOSE 127 H mg/dL (70-110) BUN 6 L mg/dL (7-18) CREATININE 0.9 mg/dL (0.6-1.3) Estimated GFR >60 mL/min Estimated GFR- >60 mL/min Note: Persistent reduction over 3 months in eGFR<60 mL/min/1.73 m2 defines CKD. Patients with eGFR values>=60 mL/min/1.73 m2 may also have CKD if evidence ofpersistent proteinuria. Additional information may be foundat www.kidney.org. SODIUM 125 L mmol/L (136-145) POTASSIUM 3.5 mmol/L (3.5-5.1) CHLORIDE 97 L mmol/L (98-107) CARBON DIOXIDE 29 mmol/L (21-32) CALCIUM 9.2 mg/dL (8.5-10.1) TOTAL PROTEIN 8.1 g/dL (6.4-8.2) ALBUMIN 3.4 g/dL (3.3-5.0) BILIRUBIN, TOTAL 0.4 mg/dL (0.0-1.0) ALKALINE PHOSPHATASE 137 H U/L (46-116) AST (SGOT) 44 H U/L (15-37) ALT (SGPT) 68 U/L (12-78) LIPASE 61 L U/L (73-393) AMYLASE 26 U/L (25-115) CPK 82 U/L (24-260) TROPONIN I <0.05 L ng/mL (0.00-1.5) TROPONIN REFERENCE RANGE:<0.1 NEGATIVE0.1-1.5 INDETERMINANT>1.5 POSITIVE . PROGRESS AND PROCEDURES Patient/family counseled. CLINICAL IMPRESSION Fever Asthma. Acute bronchitis. INSTRUCTIONS Do not smoke. Seek medical help to quit smoking. Warnings: Further evaluation is necessary. GENERAL WARNINGS: Return or contact your physician immediately if your condition worsens or changes unexpectedly, if not improving as expected, or if other problems arise. Prescription Medications: Albuterol HFA oral inhaler: inhale 2 puffs via spacer every 4 hours. Dispense one (1) unit. No refill. Prednisone 20 mg: take 3 orally every day for 5 days. Dispense fifteen (15). No refills. Zithromax 250 mg tablets: take 2 orally today, followed by 1 daily for the next 4 days. No refills. Substitution is permissible. OTC Medications: Acetaminophen (available over the counter): take according to label instructions. Motrin (available over the counter): take according to label instructions. Follow-up: Follow up with your doctor in five days. Call for an appointment. Understanding of the discharge instructions verbalized by patient. (Electronically signed by Sharath Woods MD 04/28/2017 21:30)
--- NOTE | 2017-04-27 21:17 | ED CLINICAL REPORT ---
Clinical Report - Physicians/Mid Levels [facility] [address] [place] [address] 04/27/2017 18:04 Patient: BROOK KEARNEY Time Seen: 18:25. Arrived- By private vehicle. Historian- patient. HISTORY OF PRESENT ILLNESS Chief Complaint: DYSPNEA and HISTORY OF ASTHMA. This started about 2 days ago and is still present. It was gradual in onset and has been constant and waxing/waning. The dyspnea is severe. The patient has had a cough, fever, wheezing and chills and experienced sweating episodes. No sputum production, calf pain or foot swelling. REVIEW OF SYSTEMS The patient has had fever, chills, chest pain and a cough and experienced sweats. No abdominal pain, constipation, diarrhea, nausea or vomiting. All systems otherwise negative, except as recorded above. PAST HISTORY Medications: Albuterol Sulfate HFA Inhalation, as needed (neb used as well at times). FentaNYL Transdermal 12mcg/hr, every 72 hours. Gabapentin Oral 300 mg, 3x a day. Promethazine HCl Oral 25 mg, 4x a day. QUEtiapine Fumarate Oral. Sertraline HCl Oral 250mg at HS . TraZODone HCl Oral 200mg , at bedtime. Allergies: Amoxicillin. Compazine. Latex. Metformin. Methocarbamol. Morphine Sulfate. Phenergan. Definite Moderate(hives, rash). SOCIAL HISTORY Current every day heavy tobacco smoker (cigarette)- less than 1 pack per day (vapes). No alcohol use or drug use. FAMILY HISTORY Denies family medical history. ADDITIONAL NOTES The nursing notes have been reviewed. PHYSICAL EXAM Vital Signs: 04/27/2017 18:08 BP: 138/94. HR: 116. RR: 23. O2 saturation: 97%. Temp: 98.3 F. Pain level now: 10/10. Have been reviewed. Appearance: Alert. Eyes: Pupils equal, round and reactive to light. ENT: Pharyngeal erythema. Hoarse voice. Pharynx normal. Neck: Normal inspection. No jugular venous distention. CVS: Normal heart rate and rhythm. Heart sounds normal. Respiratory: Prolonged expirations. Decreased air movement. Wheezing present. (rattle over large airways that clears with cough). Abdomen: Soft and nontender. No organomegaly. Obese. Back: Normal inspection. No CVA tenderness. Skin: Skin warm and dry. Normal skin color. Normal skin turgor. Extremities: Extremities exhibit normal ROM. No calf tenderness. No lower extremity edema. LABS, X-RAYS, AND EKG EKG: Rate: 111. Prior EKG unavailable. The study has been independently viewed by me. Chest X-ray: (IMPRESSION: 1. Given low lung volumes, no definite acute cardiopulmonary disease. 2. Right middle lobe atelectatic changes). The X-rays were interpreted by the radiologist and contemporaneously by me. Laboratory Tests: UA-Culture if indicated: (JAKY: 04/27/2017 20:39) ( [facility] 04/27/2017 21:10) IP Test Result Flag Units (Reference) URINE COLOR YELLOW URINE APPEARANCE CLEAR URINE GLUCOSE NEGATIVE (NEGATIVE) URINE BILIRUBIN NEGATIVE (NEGATIVE) URINE KETONE NEGATIVE (NEGATIVE) URINE SPECIFIC GRAVITY 1.015 (1.010-1.030) URINE PH 8.5 H (5.0-8.0) URINE PROTEIN NEGATIVE (NEGATIVE) URINE UROBILINOGEN 0.2 EU/dL (0.2-1.0) URINE NITRITE NEGATIVE (NEGATIVE) URINE BLOOD NEGATIVE (NEGATIVE) URINE LEUK ESTERASE POSITIVE (NEGATIVE) Urine: (JAKY: 04/27/2017 20:39) ( [facility] 04/27/2017 21:11) Final results Test Result Flag Units (Reference) URINE NEGATIVE CBC w Diff: (JAKY: 04/27/2017 18:25) ( [facility] 04/27/2017 19:56) Final results Test Result Flag Units (Reference) WHITE BLOOD COUNT 14.4 H K/uL (4.5-11.5) RED BLOOD COUNT 4.79 M/uL (4.00-5.20) HEMOGLOBIN 11.8 L gm/dL (12.0-16.0) HEMATOCRIT 35.9 L % (36.0-46.0) MEAN CELL VOLUME 75 L fL (80-100) MEAN CORPUSCULAR HGB 25 L pg (26-34) MEAN CORPUSCULAR HGB CONC 33 g/dL (31-37) RED CELL DISTRIBUTION WIDTH 15.1 H % (11.6-14.8) PLATELET COUNT 392 K/uL (150-400) NEUTROPHIL % 84.8 H % (50-75) LYMPH % 10.9 L % (25-40) MONO % 2.5 L % (3-14) EOSINOPHIL % 1.4 % (0-4) BASOPHIL % 0.4 % (0-2) [id number]: (JAKY: 04/27/2017 18:25) ( [facility] 04/27/2017 20:05) Final results Test Result Flag Units (Reference) D-DIMER QUANTITATIVE 0.46 ug/mLFEU (0.27-0.52) The primary value of this quantitative assay relates toits negative predictive value (i.e. exclusion) of pulmonaryembolism/deep vein thrombosis/DIC.Elevated levels of d-dimer may also occur with:, age, cancer, inflammation, liver disease,post-op, infection, hematoma, coronary disease, peripheralarteriopathy, bleeding disorders and thrombolytic treatment.Results should be correlated with other clinical andradiological data.Testing Methodology: Latex Immunoassay BNP: (JAKY: 04/27/2017 18:25) ( [facility] 04/27/2017 20:29) Final results Test Result Flag Units (Reference) B-TYPE NATRIURETIC PEPTIDE 304 H pg/ml (5-100) CMP: (JAKY: 04/27/2017 18:25) ( [facility]27) Final results Test Result Flag Units (Reference) GLUCOSE 127 H mg/dL (70-110) BUN 6 L mg/dL (7-18) CREATININE 0.9 mg/dL (0.6-1.3) Estimated GFR >60 mL/min Estimated GFR- >60 mL/min Note: Persistent reduction over 3 months in eGFR<60 mL/min/1.73 m2 defines CKD. Patients with eGFR values>=60 mL/min/1.73 m2 may also have CKD if evidence ofpersistent proteinuria. Additional information may be foundat www.kidney.org. SODIUM 125 L mmol/L (136-145) POTASSIUM 3.5 mmol/L (3.5-5.1) CHLORIDE 97 L mmol/L (98-107) CARBON DIOXIDE 29 mmol/L (21-32) CALCIUM 9.2 mg/dL (8.5-10.1) TOTAL PROTEIN 8.1 g/dL (6.4-8.2) ALBUMIN 3.4 g/dL (3.3-5.0) BILIRUBIN, TOTAL 0.4 mg/dL (0.0-1.0) ALKALINE PHOSPHATASE 137 H U/L (46-116) AST (SGOT) 44 H U/L (15-37) ALT (SGPT) 68 U/L (12-78) LIPASE 61 L U/L (73-393) AMYLASE 26 U/L (25-115) CPK 82 U/L (24-260) TROPONIN I <0.05 L ng/mL (0.00-1.5) TROPONIN REFERENCE RANGE:<0.1 NEGATIVE0.1-1.5 INDETERMINANT>1.5 POSITIVE . PROGRESS AND PROCEDURES Patient/family counseled. CLINICAL IMPRESSION Fever Asthma. Acute bronchitis. INSTRUCTIONS Do not smoke. Seek medical help to quit smoking. Warnings: Further evaluation is necessary. GENERAL WARNINGS: Return or contact your physician immediately if your condition worsens or changes unexpectedly, if not improving as expected, or if other problems arise. Prescription Medications: Albuterol HFA oral inhaler: inhale 2 puffs via spacer every 4 hours. Dispense one (1) unit. No refill. Prednisone 20 mg: take 3 orally every day for 5 days. Dispense fifteen (15). No refills. Zithromax 250 mg tablets: take 2 orally today, followed by 1 daily for the next 4 days. No refills. Substitution is permissible. OTC Medications: Acetaminophen (available over the counter): take according to label instructions. Motrin (available over the counter): take according to label instructions. Follow-up: Follow up with your doctor in five days. Call for an appointment. Understanding of the discharge instructions verbalized by patient. (Electronically signed by Sharath Woods MD 04/28/2017 21:30)
--- NOTE | 2017-04-27 21:17 | ED NURSING NOTES ---
Clinical Report - Nurses [facility] [address] [place] [address] 04/27/2017 18:04 Patient: BROOK KEARNEY TRIAGE Triage time 18:08. Acuity: LEVEL 3. Chief Complaint: DIFFICULTY BREATHING and "ASTHMA ATTACK". Alert. AYDEE COMA SCORE: [place] Coma Scale: 15- eyes open spontaneously (4); best verbal response- oriented x 4 (5); best motor response- obeys commands (6). --18:27 Maxim Shen R.N. 18:08 04/27/17. BP: 138/94. HR: 116. RR: 23. O2 saturation: 97%. Temp: 98.3 F (temporal). Pain level now: 08/16. --18:27 Maxim Shen R.N. Weight: 131.5 kg stated. Height/Length: 65 inches Per Patient. BMI: 48.3. --18:15 Maxim Shen R.N. Medications Albuterol Sulfate HFA Inhalation, as needed (neb used as well at times). FentaNYL Transdermal 12mcg/hr, every 72 hours. Gabapentin Oral 300 mg, 3x a day. Promethazine HCl Oral 25 mg, 4x a day. QUEtiapine Fumarate Oral. Sertraline HCl Oral 250mg at HS . TraZODone HCl Oral 200mg , at bedtime. --18:10 Maxim Shen R.N. Medication/allergy information source: other. --18:27 Maxim Shen R.N. Allergies Amoxicillin. Compazine. Latex. Metformin. Methocarbamol. Morphine Sulfate. Phenergan. Definite Moderate(hives, rash) --18:10 Maxim Shen R.N. History Arrived by private vehicle. Historian: patient. Accompanied by friend. Primary physician (Robert). This started today. ( took 3 doses of "nighttime"cold medicine today, emesis in ED room, pt says she has been sick for 2 days and has had a fever and vomiting has a 12 mcg and a 25 mcg Fentanyl patch on, says she has extra patch on because her pain is worse). 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 PAST MEDICAL HX: Last normal menstrual period- April 2017. SOCIAL HX: Heavy tobacco smoker- less than 1 pack per day (vapes). No alcohol use or drug use. FUNCTIONAL ASSESSMENT: Functional assessment: no impairments noted. LEARNING NEEDS ASSESSMENT: The learning needs assessment revealed no barriers. FALL RISK ASSESSMENT: Fall risk assessment completed. Risk factors identified include patient impairment of mobility. Fall interventions initiated. Patient placed on stretcher. Side rails up x2. Brakes on Bed in low position. Multimedia Educational Specialist at bedside. --18:27 Maxim Shen R.N. PROBLEMS: Pyelonephritis. Nausea. Gastritis. Lupus. Smoker. Rheumatoid Arthritis. Dysfunctional Uterine Bleeding. Abnormal Liver Function Test. Mesenteric Lymphadenitis. Dental Pain. Vaginal Bleeding. DVT - Deep Venous Thrombosis. Atypical Chest Pain. Dysmenorrhea. Acute Pain. Constipation. Abrasion(s). Narcotic Withdrawal. Back Pain. Hypokalemia. Leukocytosis. Peptic Ulcer Disease. Abdominal Pain. Rectal Bleed. Diarrhea. Vomiting. Gastroenteritis. Immunizations. UTI - Urinary Tract Infection. Hypertension. Lower Extremity Pain. Myofascial Strain. Fall. Contusion. Hip dysplasia. Obesity. Fractured Phalanx (Toe). Tetanus Status. LNMP - Last Normal Menstrual Period. Chronic Back Pain. Asthma. --18:13 Maxim Shen R.N. ADDITIONAL SURGERIES: Ankle surgery. Hip Surgery. Laparoscopy. Laparotomy. --18:13 Maxim Shen R.N. Assessment GENERAL / NEURO / PSYCH: The patient is awake and alert and is oriented and cooperative. RESPIRATORY: Cough. CVS: Cardiac rhythm: sinus tachycardia. SKIN: Skin is warm and dry. ( flushed). --18:27 Maxim Shen R.N. Interventions ID and allergy band on patient. To treatment room. --18:27 Maxim Shen R.N. PHYSICAL ASSESSMENT 18:28 04/27/17. To room via wheelchair. Patient gowned. GENERAL / NEURO / PSYCH: The patient is awake and alert and is flushed. RESPIRATORY: Mild respiratory distress. The patient can speak a few words at a time. Cough. CVS: Cardiac rhythm: sinus tachycardia. SKIN: Skin is warm and dry. ( flushed). --18:28 Maxim Shen R.N. NURSING PROGRESS NOTES 18:27 04/27/17. Cardiac rhythm: sinus tachycardia. management assistant, pulse oximeter and NIBP monitor placed on patient. Patient gowned. Head of bed elevated. Call light placed in reach. Side rails up x 2. Bed placed in lowest position. Brakes of bed on. --18:27 Maxim Shen R.N. 18:29 04/27/2017 Site #1 started via IV in the left forearm with an 22g angiocath, with aseptic technique and good blood return; one attempt. Blood drawn: rainbow set. Labeled in the presence of the patient. Saline lock flushed with 10 mL saline (by Flex WILKINSON). --18:29 Maxim Shen R.N. 18:33 04/27/17. Reassessment after procedure. Overall patient status is improved- she states feels better. SKIN: Skin is warm and dry. --18:33 Maxim Shen R.N. 18:31 04/27/17. BP: 136/90. HR: 126. RR: 19. O2 saturation: 100%. Pain level now: 08/16. --18:33 Maxim Shen R.N. EKG time: (1841). EKG was ordered, performed by a tech and shown to the ED physician. --18:46 Jayesh Hill, ER Tech1 Care transferred (maxim WILKINSON, assumed care of pt). --19:24 Veronica Alves R.N. Patient ID band checked for patient name and birthdate: patient confirmed. Instructions provided to collect clean catch urine and patient verbalized understanding. Clean catch urine collected with return of yellow-colored clear urine; sample sent to lab for urinalysis, culture and HCG. Specimen labeled in the presence of the patient. Overall patient status is the same- she states feels the same. ( pt up to BSC, c/o nausea and feeling hot, MD notified of temp and orders received). --20:52 Veronica Alves R.N. 20:46 04/27/17. BP: 164/78 taken on the right arm, while sitting. HR: 111 (regular and tachycardic). RR: 20 (regular). O2 saturation: 93% on room air. Temp: 101.1 F (oral). Pain level now: 12/17. --20:52 Veronica Alves R.N. Two patient identifiers checked. Call light placed in reach. Side rails up. Bed placed in lowest position. Brakes of bed on. --20:52 Veronica Alves R.N. 20:55 04/27/2017 Zofran (Ondansetron HCl) IVP 4 mg given over 2 minute(s) via site #1. Allergies verified and confirmed 5 rights. IV patency established. IV site checked: no pain, redness, or swelling. IV flushed thoroughly pre- and post-medication administration. IVP given by RN. --21:13 Veronica Alves R.N. 20:59 04/27/2017 SOLU-MEDROL (MethylPREDNISolone Sodium Succ) IVP 125 mg given over 2 minute(s) via site #1. Allergies verified and confirmed 5 rights. IV patency established. IV site checked: no pain, redness, or swelling. IV flushed thoroughly pre- and post-medication administration. IVP given by RN. --21:14 Veronica Alves R.N. 21:00 04/27/2017 Albuterol Neb TX Nebulizer 1 unit dose given. Given by the respiratory therapist. Allergies verified and confirmed 5 rights. --21:12 Veronica Alves R.N. 21:04 04/27/2017 Acetaminophen (APAP) PO Tablets 1000 mg given. Allergies verified and confirmed 5 rights. --21:13 Veronica Alves R.N. Overall patient status is improved- she states feels better. --21:15 Veronica Alves R.N. 21:14 04/27/17. BP: 135/64 taken on the right arm, while sitting. HR: 123 (regular). RR: 26 (regular and unlabored). O2 saturation: 99% on room air. Temp: deferred. Pain level now: 12/17. --21:15 Veronica Alves R.N. DISPOSITION / DISCHARGE 21:05 04/27/2017 Albuterol Neb TX discontinued due to improvement in patient condition. --22:14 Veronica Alves R.N. 22:14 04/27/2017 Site #1 removed upon discharge. Manual pressure and bandage applied. --22:14 Veronica Alves R.N. 22:04/27/2017 IV Saline Lock Drip IV Discontinued: upon discharge. Total amount infused: 0 mL. IV patency established. IV site checked: no pain, redness, or swelling. IV flushed thoroughly. --22:14 Veronica Alves R.N. Departure time: 2213. Condition at departure: improved and stable. No learning barriers present. Discharge instructions provided and reviewed with the patient. Reviewed medication(s) side effects, precautions, dosing and course information. Prescription(s) given to the patient. Reviewed fever care instructions. Reviewed need to stop smoking- provided smoking cessation materials. Patient verbalized understanding. Written instructions provided in Kiswahili. The patient was discharged home and accompanied by friend. She left the Emergency Department in a wheelchair and via private vehicle. Multimedia Educational Specialist driving. --22:17 Veronica Alves R.N. 22:04/27/17. BP: 151/88 taken on the right arm, while lying. HR: 118 (regular and tachycardic). RR: 21 (regular, unlabored and rapid). O2 saturation: 96% on room air. Temp: 99.1 F. Pain level now: 0/10. --22:17 Veronica Alves R.N. Locked/Released at 04/27/2017 22:17 by Veronica Alves R.N.
--- NOTE | 2017-04-27 21:17 | ED NURSING NOTES ---
Clinical Report - Nurses [facility] [address] [place] [address] 04/27/2017 18:04 Patient: BROOK KEARNEY TRIAGE Triage time 18:08. Acuity: LEVEL 3. Chief Complaint: DIFFICULTY BREATHING and "ASTHMA ATTACK". Alert. AYDEE COMA SCORE: [place] Coma Scale: 15- eyes open spontaneously (4); best verbal response- oriented x 4 (5); best motor response- obeys commands (6). --18:27 Maxim Shen R.N. 18:08 04/27/17. BP: 138/94. HR: 116. RR: 23. O2 saturation: 97%. Temp: 98.3 F (temporal). Pain level now: 08/16. --18:27 Maxim Shen R.N. Weight: 131.5 kg stated. Height/Length: 65 inches Per Patient. BMI: 48.3. --18:15 Maxim Shen R.N. Medications Albuterol Sulfate HFA Inhalation, as needed (neb used as well at times). FentaNYL Transdermal 12mcg/hr, every 72 hours. Gabapentin Oral 300 mg, 3x a day. Promethazine HCl Oral 25 mg, 4x a day. QUEtiapine Fumarate Oral. Sertraline HCl Oral 250mg at HS . TraZODone HCl Oral 200mg , at bedtime. --18:10 Maxim Shen R.N. Medication/allergy information source: other. --18:27 Maxim Shen R.N. Allergies Amoxicillin. Compazine. Latex. Metformin. Methocarbamol. Morphine Sulfate. Phenergan. Definite Moderate(hives, rash) --18:10 Maxim Shen R.N. History Arrived by private vehicle. Historian: patient. Accompanied by friend. Primary physician (Robert). This started today. ( took 3 doses of "nighttime"cold medicine today, emesis in ED room, pt says she has been sick for 2 days and has had a fever and vomiting has a 12 mcg and a 25 mcg Fentanyl patch on, says she has extra patch on because her pain is worse). 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 PAST MEDICAL HX: Last normal menstrual period- April 2017. SOCIAL HX: Heavy tobacco smoker- less than 1 pack per day (vapes). No alcohol use or drug use. FUNCTIONAL ASSESSMENT: Functional assessment: no impairments noted. LEARNING NEEDS ASSESSMENT: The learning needs assessment revealed no barriers. FALL RISK ASSESSMENT: Fall risk assessment completed. Risk factors identified include patient impairment of mobility. Fall interventions initiated. Patient placed on stretcher. Side rails up x2. Brakes on Bed in low position. Sexton Helper at bedside. --18:27 Maxim Shen R.N. PROBLEMS: Pyelonephritis. Nausea. Gastritis. Lupus. Smoker. Rheumatoid Arthritis. Dysfunctional Uterine Bleeding. Abnormal Liver Function Test. Mesenteric Lymphadenitis. Dental Pain. Vaginal Bleeding. DVT - Deep Venous Thrombosis. Atypical Chest Pain. Dysmenorrhea. Acute Pain. Constipation. Abrasion(s). Narcotic Withdrawal. Back Pain. Hypokalemia. Leukocytosis. Peptic Ulcer Disease. Abdominal Pain. Rectal Bleed. Diarrhea. Vomiting. Gastroenteritis. Immunizations. UTI - Urinary Tract Infection. Hypertension. Lower Extremity Pain. Myofascial Strain. Fall. Contusion. Hip dysplasia. Obesity. Fractured Phalanx (Toe). Tetanus Status. LNMP - Last Normal Menstrual Period. Chronic Back Pain. Asthma. --18:13 Maxim Shen R.N. ADDITIONAL SURGERIES: Ankle surgery. Hip Surgery. Laparoscopy. Laparotomy. --18:13 Maxim Shen R.N. Assessment GENERAL / NEURO / PSYCH: The patient is awake and alert and is oriented and cooperative. RESPIRATORY: Cough. CVS: Cardiac rhythm: sinus tachycardia. SKIN: Skin is warm and dry. ( flushed). --18:27 Maxim Shen R.N. Interventions ID and allergy band on patient. To treatment room. --18:27 Maxim Shen R.N. PHYSICAL ASSESSMENT 18:28 04/27/17. To room via wheelchair. Patient gowned. GENERAL / NEURO / PSYCH: The patient is awake and alert and is flushed. RESPIRATORY: Mild respiratory distress. The patient can speak a few words at a time. Cough. CVS: Cardiac rhythm: sinus tachycardia. SKIN: Skin is warm and dry. ( flushed). --18:28 Maxim Shen R.N. NURSING PROGRESS NOTES 18:27 04/27/17. Cardiac rhythm: sinus tachycardia. entry level manager, pulse oximeter and NIBP monitor placed on patient. Patient gowned. Head of bed elevated. Call light placed in reach. Side rails up x 2. Bed placed in lowest position. Brakes of bed on. --18:27 Maxim Shen R.N. 18:29 04/27/2017 Site #1 started via IV in the left forearm with an 22g angiocath, with aseptic technique and good blood return; one attempt. Blood drawn: rainbow set. Labeled in the presence of the patient. Saline lock flushed with 10 mL saline (by Flex WILKINSON). --18:29 Maxim Shen R.N. 18:33 04/27/17. Reassessment after procedure. Overall patient status is improved- she states feels better. SKIN: Skin is warm and dry. --18:33 Maxim Shen R.N. 18:31 04/27/17. BP: 136/90. HR: 126. RR: 19. O2 saturation: 100%. Pain level now: 08/16. --18:33 Maxim Shen R.N. EKG time: (1841). EKG was ordered, performed by a tech and shown to the ED physician. --18:46 Jayesh Hill, ER Tech1 Care transferred (maxim WILKINSON, assumed care of pt). --19:24 Veronica Alves R.N. Patient ID band checked for patient name and birthdate: patient confirmed. Instructions provided to collect clean catch urine and patient verbalized understanding. Clean catch urine collected with return of yellow-colored clear urine; sample sent to lab for urinalysis, culture and HCG. Specimen labeled in the presence of the patient. Overall patient status is the same- she states feels the same. ( pt up to BSC, c/o nausea and feeling hot, MD notified of temp and orders received). --20:52 Veronica Alves R.N. 20:46 04/27/17. BP: 164/78 taken on the right arm, while sitting. HR: 111 (regular and tachycardic). RR: 20 (regular). O2 saturation: 93% on room air. Temp: 101.1 F (oral). Pain level now: 12/17. --20:52 Veronica Alves R.N. Two patient identifiers checked. Call light placed in reach. Side rails up. Bed placed in lowest position. Brakes of bed on. --20:52 Veronica Alves R.N. 20:55 04/27/2017 Zofran (Ondansetron HCl) IVP 4 mg given over 2 minute(s) via site #1. Allergies verified and confirmed 5 rights. IV patency established. IV site checked: no pain, redness, or swelling. IV flushed thoroughly pre- and post-medication administration. IVP given by RN. --21:13 Veronica Alves R.N. 20:59 04/27/2017 SOLU-MEDROL (MethylPREDNISolone Sodium Succ) IVP 125 mg given over 2 minute(s) via site #1. Allergies verified and confirmed 5 rights. IV patency established. IV site checked: no pain, redness, or swelling. IV flushed thoroughly pre- and post-medication administration. IVP given by RN. --21:14 Veronica Alves R.N. 21:00 04/27/2017 Albuterol Neb TX Nebulizer 1 unit dose given. Given by the respiratory therapist. Allergies verified and confirmed 5 rights. --21:12 Veronica Alves R.N. 21:04 04/27/2017 Acetaminophen (APAP) PO Tablets 1000 mg given. Allergies verified and confirmed 5 rights. --21:13 Veronica Alves R.N. Overall patient status is improved- she states feels better. --21:15 Veronica Alves R.N. 21:14 04/27/17. BP: 135/64 taken on the right arm, while sitting. HR: 123 (regular). RR: 26 (regular and unlabored). O2 saturation: 99% on room air. Temp: deferred. Pain level now: 12/17. --21:15 Veronica Alves R.N. DISPOSITION / DISCHARGE 21:05 04/27/2017 Albuterol Neb TX discontinued due to improvement in patient condition. --22:14 Veronica Alves R.N. 22:14 04/27/2017 Site #1 removed upon discharge. Manual pressure and bandage applied. --22:14 Veronica Alves R.N. 22:04/27/2017 IV Saline Lock Drip IV Discontinued: upon discharge. Total amount infused: 0 mL. IV patency established. IV site checked: no pain, redness, or swelling. IV flushed thoroughly. --22:14 Veronica Alves R.N. Departure time: 2213. Condition at departure: improved and stable. No learning barriers present. Discharge instructions provided and reviewed with the patient. Reviewed medication(s) side effects, precautions, dosing and course information. Prescription(s) given to the patient. Reviewed fever care instructions. Reviewed need to stop smoking- provided smoking cessation materials. Patient verbalized understanding. Written instructions provided in Polish. The patient was discharged home and accompanied by friend. She left the Emergency Department in a wheelchair and via private vehicle. Sexton Helper driving. --22:17 Veronica Alves R.N. 22:04/27/17. BP: 151/88 taken on the right arm, while lying. HR: 118 (regular and tachycardic). RR: 21 (regular, unlabored and rapid). O2 saturation: 96% on room air. Temp: 99.1 F. Pain level now: 0/10. --22:17 Veronica Alves R.N. Locked/Released at 04/27/2017 22:17 by Veornica Alves R.N.
--- NOTE | 2017-04-28 21:30 | ED DISCHARGE INSTRUCTIONS ---
Patient: BROOK KEARNEY General Instructions [facility]ly [facility] VisitID: [id number] [place] [address] 26y, F Registration Date/Time: 04/27/2017 Fever Asthma. Acute bronchitis. INSTRUCTIONS Do not smoke. Seek medical help to quit smoking. Warnings: Further evaluation is necessary. GENERAL WARNINGS: Return or contact your physician immediately if your condition worsens or changes unexpectedly, if not improving as expected, or if other problems arise. Prescription Medications: Albuterol HFA oral inhaler: inhale 2 puffs via spacer every 4 hours. Dispense one (1) unit. No refill. Prednisone 20 mg: take 3 orally every day for 5 days. Dispense fifteen (15). No refills. Zithromax 250 mg tablets: take 2 orally today, followed by 1 daily for the next 4 days. No refills. Substitution is permissible. OTC Medications: Acetaminophen (available over the counter): take according to label instructions. Motrin (available over the counter): take according to label instructions. Follow-up: Follow up with your doctor in five days. Call for an appointment. Understanding of the discharge instructions verbalized by patient. ADDITIONAL INFORMATION Febrile Illness, Uncertain Cause (Adult) You have a fever, but the cause is not certain. A fever is a natural reaction of the body to an illness such as infections due to a virus or bacteria. In most cases, the temperature itself is not harmful. It actually helps the body fight infections. A fever does not need to be treated unless you feel very uncomfortable. Sometimes a fever can be an early sign of a more serious infection. Therefore, you should watch for the signs listed below. Home Care: If signs and symptoms are severe, rest at home for the first 2-3 days. When you resume activity, don't let yourself get too tired. Stay away from cigarette smoke (yours and other peoples). You may use acetaminophen (Tylenol) or ibuprofen (Motrin, Advil) to control fever or pain, unless another medicine was prescribed. NOTE: If you have chronic liver or kidney disease or ever had a stomach ulcer or GI bleeding, talk with your doctor before using these medicines. (Aspirin should never be used in anyone under 18 years of age who is ill with a fever. It may cause severe liver damage.) Your appetite may be poor, so a light diet is fine. Avoid dehydration by drinking 6-8 glasses of fluid per day (water, sport drinks such as Gatorade, sodas without caffeine, juices, tea, soup). Extra fluid will help loosen secretions in the nose and lungs. Hsig-rkd-jbijrkd products will not shorten the duration of the illness but may be helpful for the following symptoms: cough (Robitussin DM); sore throat (Chloraseptic lozenges or spray); nasal and sinus congestion (Actifed or Sudafed). NOTE: Do not use decongestants if you have high blood pressure. Follow Up with your doctor or as advised if you do not start to improve over the next week. Get Prompt Medical Attention if any of the following occur: Cough with lots of colored sputum (mucus) or blood in your sputum Chest pain, shortness of breath, wheezing or difficulty breathing Severe headache, face, neck, throat or ear pain Feeling drowsy or confused Abdominal pain, repeated vomiting or diarrhea Joint pain or a new rash Burning when urinating Fever of 100.4F (38C) oral or higher, not better with fever medication Feeling weak or dizzy Convulsion Asthma [Adult] Asthma is a disease where the small air passages within the lung go into spasm and restrict the flow of air. Inflammation and swelling of the airways cause further restriction. During an acute asthma attack, these factors cause difficulty breathing, wheezing, cough and chest tightness. An asthma attack can be triggered by many things. Common triggers include the common cold, bronchitis, pneumonia, irritants such as smoke or pullutants in the air, emotional upset and heavy exercise. Inmany adults with asthma, allergies todust, mold, pollen and animal dander can cause an asthma attack. Skipping doses of daily asthma medicine can also bring on an asthma attack. Asthma can be controlled with proper medicines and decreased exposure to known allergens. Home Care: Take prescribed medicine exactly at the times advised. If you have a hand-held inhaler or aerosol breathing medicine, do not use it more than once every four hours, unless told to do so. (If you need this medicine more than every four hours, you may need to return to the Emergency Room.) If prescribed an antibiotic or prednisone, take all of the medicine even if you are feeling better after a few days. Do not smoke. Avoid being exposed to the smoke of others. Some persons with asthma have worsening of their symptoms when they take aspirin and non-steroidal medicines like ibuprofen (Motrin, Advil) and naproxen (Aleve, Naprosyn). Talk to your doctor if you think this may apply to you. Acetaminophen (Tylenol)should be safe to use. Follow Up with your doctor, or as advised by our staff. Always bring all of your current medicines with you for your doctor to see. If you do not already have one, talk to your doctor about developing a personalized "Asthma Action Plan." [NOTE: A pneumococcal vaccine and yearly flu shot (every fall) are recommended. Ask your doctor about this.] Get Prompt Medical Attention if any of the following occur: Increased wheezing or shortness of breath Need to use your inhalers more often than usual without relief Fever of 100.4F (38C) or higher, or as directed by your healthcare provider Coughing up lots of dark-colored or bloody sputum (mucus) Chest pain with each breath You do not start to improve within 24 hours Call 911 If Any Of The Following Occur : Trouble walking or talking because of shortness of breath If you use a peak flow meter andyou are still in the red zone (less than 50 percent) 15 minutes after using inhaler medication Lips or fingernails turning gottlieb or blue Bronchitis (Adult: Abx Tx) BRONCHITIS is an infection of the air passages (bronchial tubes). It often occurs during the common cold. Symptoms include cough with mucus (phlegm) and low-grade fever. Bronchitis usually lasts 7-14 days. Mild cases can be treated with simple home remedies. More severe infection is treated with an antibiotic. Home Care: If symptoms are severe, rest at home for the first 2-3 days. When you resume activity, don't let yourself get too tired. Do not smoke. Avoid being exposed to the smoke of others. You may use acetaminophen (Tylenol) or ibuprofen (Motrin, Advil) to control fever or pain, unless another medicine was prescribed for this. [NOTE: If you have chronic liver or kidney disease or ever had a stomach ulcer or GI bleeding, talk with your doctor before using these medicines.] Your appetite may be poor, so a light diet is fine. Avoid dehydration by drinking 6-8 glasses of fluids per day (water, soft, drinks, juices, tea, soup, etc.). Extra fluids will help loosen secretions in the lungs. [id number] cough medicines that containdextromethorphan(such as Robitussin DM) and decongestants (Actifed or Sudafed) may help relieve cough and congestion. [NOTE: Do not use decongestants if you have high blood pressure.] Finish all antibiotic medicine, even if you are feeling better after only a few days. Follow Up with your doctor or as directed if you dont start to feel better after three days. [NOTE: If you are age 65 or older, or if you have chronic asthma or COPD, we recommend a PNEUMOCOCCAL VACCINATION every five years and a yearly INFLUENZAVACCINATION (FLU-SHOT) every . Ask your doctor about this. If you had an X-ray, a radiologist will review it. You will be notified of any new findings that may affect your care.] Get Prompt Medical Attention if any of the following occur: Fever over 100.4F (38.0C) for more than three days Trouble breathing, wheezing or pain with breathing Coughing up blood or increased amounts of colored sputum Weakness, drowsiness, headache, facial pain, ear pain or a stiff neck How To Quit Smoking Smoking is one of the hardest habits to break. About half of all those who have ever smoked have been able to quit, and most of those (about 70%) who still smoke want to quit. Here are some of the best ways to stop smoking. Keep Trying: It takes most smokers about 8 tries before they are finally able to fully quit. So, the more often you try and fail, the better your chance of quitting the next time! So, don't give up! Go Cold [place]: Most ex-smokers quit cold turkey. Trying to cut back gradually doesn't seem to work as well, perhaps because it continues the smoking habit. Also, it is possible to fool yourself by inhaling more while smoking fewer cigarettes. This results in the same amount of nicotine in your body! Get Support: Support programs can make an important difference, especially for the heavy smoker. These groups offer lectures, methods to change your behavior and peer support. Call the free national Quitline for more information. 339-FJSL-TDU (653-564-6567). Low-cost or free programs are offered by many hospitals, local chapters of the [place] [employer] (338-706-4071) and the [place] [employer] (106-991-4419). Support at home is important too. Non-smokers can help by offering praise and encouragement. If the smoker fails to quit, encourage them to try again! Ceaj-Zcs-Uzzqole Medicines: For those who can't quit on their own, Nicotine Replacement Therapy (NRT) may make quitting much easier. Certain aids such as the nicotine patch, gum and lozenge are available without a prescription. However, it is best to use these under the guidance of your doctor. The skin patch provides a steady supply of nicotine to the body. Nicotine gum and lozenge gives temporary bursts of low levels of nicotine. Both methods take the edge off the craving for cigarettes. WARNING: If you feel symptoms of nicotine overdose, such as nausea, vomiting, dizziness, weakness, or fast heartbeat, stop using these and see your doctor. Prescription Medicines: After evaluating your smoking patterns and prior attempts at quitting, your doctor may offer a prescription medicine such as bupropion (Zyban, Wellbutrin), varenicline (Chantix, Champix), a niocotine inhaler or nasal spray. Each has its unique advantage and side effects which your doctor can review with you. Health Benefits Of Quitting: The benefits of quitting start right away and keep improving the longer you go without smokin minutes: blood pressure and pulse return to normal 8 hours: oxygen levels return to normal 2 days: ability to smell and taste begins to improve as damaged nerves start to regrow 2-3 weeks: circulation and lung function improves 1-9 months: decreased cough, congestion and shortness of breath; less tired 1 year: risk of heart attack decreases by half 5 years: risk of lung cancer decreases by half; risk of stroke becomes the same as a non-smoker For information about how to quit smoking, visit the following links: National Cancer [place] , Clearing the Air, Quit Smoking Today - an online booklet. http://www.smokefree.gov/pubs/clearing_the_air.pdf Smokefree.gov http://smokefree.gov/ QuitNet http://www.quitnet.com/ Albuterol Sulfate Pressurized inhalation, suspension What is this medicine? ALBUTEROL (al BYOO ter ole) is a bronchodilator. It helps open up the airways in your lungs to make it easier to breathe. This medicine is used to treat and to prevent bronchospasm. How should I use this medicine? This medicine is for inhalation through the mouth. Follow the directions on your prescription label. Take your medicine at regular intervals. Do not use more often than directed. Make sure that you are using your inhaler correctly. Ask you doctor or health care provider if you have any questions. Talk to your regional education coordinator regarding the use of this medicine in children. Special care may be needed. What side effects may I notice from receiving this medicine? Side effects that you should report to your doctor or health in home caregiver as soon as possible: allergic reactions like skin rash, itching or hives, swelling of the face, lips, or tongue breathing problems chest pain feeling faint or lightheaded, falls high blood pressure irregular heartbeat fever muscle cramps or weakness pain, tingling, numbness in the hands or feet vomiting Side effects that usually do not require medical attention (report to your doctor or health in home caregiver if they continue or are bothersome): cough difficulty sleeping headache nervousness or trembling stomach upset stuffy or runny nose throat irritation unusual taste What may interact with this medicine? anti-infectives like chloroquine and pentamidine caffeine cisapride diuretics medicines for colds medicines for depression or for emotional or psychotic conditions medicines for weight loss including some herbal products methadone some antibiotics like clarithromycin, erythromycin, levofloxacin, and linezolid some heart medicines steroid hormones like dexamethasone, cortisone, hydrocortisone theophylline thyroid hormones What if I miss a dose? If you miss a dose, use it as soon as you can. If it is almost time for your next dose, use only that dose. Do not use double or extra doses. Where should I keep my medicine? Keep out of the reach of children. Store at room temperature between 15 and 30 degrees C (59 and 86 degrees F). The contents are under pressure and may burst when exposed to heat or flame. Do not freeze. This medicine does not work as well if it is too cold. Throw away any unused medicine after the expiration date. Inhalers need to be thrown away after the labeled number of puffs have been used or by the expiration date; whichever comes first. Ventolin HFA should be thrown away 12 months after removing from foil pouch. Check the instructions that come with your medicine. What should I tell my health care provider before I take this medicine? They need to know if you have any of the following conditions: diabetes heart disease or irregular heartbeat high blood pressure pheochromocytoma seizures thyroid disease an unusual or allergic reaction to albuterol, levalbuterol, sulfites, other medicines, foods, dyes, or preservatives or trying to get breast-feeding What should I watch for while using this medicine? Tell your doctor or health in home caregiver if your symptoms do not improve. Do not use extra albuterol. If your asthma or bronchitis gets worse while you are using this medicine, call your doctor right away. If your mouth gets dry try chewing sugarless gum or sucking hard candy. Drink water as directed. Prednisone Oral tablet What is this medicine? PREDNISONE (PRED ni sone) is a corticosteroid. It is commonly used to treat inflammation of the skin, joints, lungs, and other organs. Common conditions treated include asthma, allergies, and arthritis. It is also used for other conditions, such as blood disorders and diseases of the adrenal glands. How should I use this medicine? Take this medicine by mouth with a glass of water. Follow the directions on the prescription label. Take this medicine with food. If you are taking this medicine once a day, take it in the morning. Do not take more medicine than you are told to take. Do not suddenly stop taking your medicine because you may develop a severe reaction. Your doctor will tell you how much medicine to take. If your doctor wants you to stop the medicine, the dose may be slowly lowered over time to avoid any side effects. Talk to your regional education coordinator regarding the use of this medicine in children. Special care may be needed. What side effects may I notice from receiving this medicine? Side effects that you should report to your doctor or health in home caregiver as soon as possible: allergic reactions like skin rash, itching or hives, swelling of the face, lips, or tongue changes in emotions or moods changes in vision depressed mood eye pain fever or chills, cough, sore throat, pain or difficulty passing urine increased thirst swelling of ankles, feet Side effects that usually do not require medical attention (report to your doctor or health in home caregiver if they continue or are bothersome): confusion, excitement, restlessness headache nausea, vomiting skin problems, acne, thin and shiny skin trouble sleeping weight gain What may interact with this medicine? Do not take this medicine with any of the following medications: metyrapone mifepristone This medicine may also interact with the following medications: aminoglutethimide amphotericin B aspirin and aspirin-like medicines barbiturates certain medicines for diabetes, like glipizide or glyburide cholestyramine cholinesterase inhibitors cyclosporine digoxin diuretics ephedrine female hormones, like estrogens and control pills isoniazid ketoconazole NSAIDS, medicines for pain and inflammation, like ibuprofen or naproxen phenytoin rifampin toxoids vaccines warfarin What if I miss a dose? If you miss a dose, take it as soon as you can. If it is almost time for your next dose, talk to your doctor or health in home caregiver. You may need to miss a dose or take an extra dose. Do not take double or extra doses without advice. Where should I keep my medicine? Keep out of the reach of children. Store at room temperature between 15 and 30 degrees C (59 and 86 degrees F). Protect from light. Keep container tightly closed. Throw away any unused medicine after the expiration date. What should I tell my health care provider before I take this medicine? They need to know if you have any of these conditions: [place]'s syndrome diabetes glaucoma heart disease high blood pressure infection (especially a virus infection such as chickenpox, cold sores, or herpes) kidney disease liver disease mental illness myasthenia gravis osteoporosis seizures stomach or intestine problems thyroid disease an unusual or allergic reaction to lactose, prednisone, other medicines, foods, dyes, or preservatives or trying to get breast-feeding What should I watch for while using this medicine? Visit your doctor or health in home caregiver for regular checks on your progress. If you are taking this medicine over a prolonged period, carry an identification card with your name and address, the type and dose of your medicine, and your doctor's name and address. This medicine may increase your risk of getting an infection. Tell your doctor or health in home caregiver if you are around anyone with measles or chickenpox, or if you develop sores or blisters that do not heal properly. If you are going to have surgery, tell your doctor or health in home caregiver that you have taken this medicine within the last twelve months. Ask your doctor or health in home caregiver about your diet. You may need to lower the amount of salt you eat. This medicine may affect blood sugar levels. If you have diabetes, check with your doctor or health in home caregiver before you change your diet or the dose of your diabetic medicine. Azithromycin Oral tablet What is this medicine? AZITHROMYCIN (az maryjo pierson) is a macrolide antibiotic. It is used to treat or prevent certain kinds of bacterial infections. It will not work for colds, flu, or other viral infections. How should I use this medicine? Take this medicine by mouth with a full glass of water. Follow the directions on the prescription label. The tablets can be taken with food or on an empty stomach. If the medicine upsets your stomach, take it with food. Take your medicine at regular intervals. Do not take your medicine more often than directed. Take all of your medicine as directed even if you think your are better. Do not skip doses or stop your medicine early. Talk to your regional education coordinator regarding the use of this medicine in children. Special care may be needed. What side effects may I notice from receiving this medicine? Side effects that you should report to your doctor or health in home caregiver as soon as possible: allergic reactions like skin rash, itching or hives, swelling of the face, lips, or tongue confusion, nightmares or hallucinations dark urine difficulty breathing hearing loss irregular heartbeat or chest pain pain or difficulty passing urine redness, blistering, peeling or loosening of the skin, including inside the mouth white patches or sores in the mouth yellowing of the eyes or skin Side effects that usually do not require medical attention (report to your doctor or health in home caregiver if they continue or are bothersome): diarrhea dizziness, drowsiness headache stomach upset or vomiting tooth discoloration vaginal irritation What may interact with this medicine? Do not take this medicine with any of the following medications: lincomycin This medicine may also interact with the following medications: amiodarone antacids cyclosporine digoxin magnesium nelfinavir phenytoin warfarin What if I miss a dose? If you miss a dose, take it as soon as you can. If it is almost time for your next dose, take only that dose. Do not take double or extra doses. Where should I keep my medicine? Keep out of the reach of children. Store at room temperature between 15 and 30 degrees C (59 and 86 degrees F). Throw away any unused medicine after the expiration date. What should I tell my health care provider before I take this medicine? They need to know if you have any of these conditions: kidney disease liver disease irregular heartbeat or heart disease an unusual or allergic reaction to azithromycin, erythromycin, other macrolide antibiotics, foods, dyes, or preservatives or trying to get breast-feeding What should I watch for while using this medicine? Tell your doctor or health in home caregiver if your symptoms do not improve. Do not treat diarrhea with over the counter products. Contact your doctor if you have diarrhea that lasts more than 2 days or if it is severe and watery. This medicine can make you more sensitive to the sun. Keep out of the sun. If you cannot avoid being in the sun, wear protective clothing and use sunscreen. Do not use sun lamps or tanning beds/booths. Acetaminophen Oral tablet What is this medicine? ACETAMINOPHEN (a set a EVERT karely fen) is a pain reliever. It is used to treat mild pain and fever. How should I use this medicine? Take this medicine by mouth with a glass of water. Follow the directions on the package or prescription label. Take your medicine at regular intervals. Do not take your medicine more often than directed. Talk to your regional education coordinator regarding the use of this medicine in children. While this drug may be prescribed for children as young as 6 years of age for selected conditions, precautions do apply. What side effects may I notice from receiving this medicine? Side effects that you should report to your doctor or health in home caregiver as soon as possible: allergic reactions like skin rash, itching or hives, swelling of the face, lips, or tongue breathing problems fever or sore throat redness, blistering, peeling or loosening of the skin, including inside the mouth trouble passing urine or change in the amount of urine unusual bleeding or bruising unusually weak or tired yellowing of the eyes or skin Side effects that usually do not require medical attention (report to your doctor or health in home caregiver if they continue or are bothersome): headache nausea, stomach upset What may interact with this medicine? alcohol imatinib isoniazid other medicines with acetaminophen What if I miss a dose? If you miss a dose, take it as soon as you can. If it is almost time for your next dose, take only that dose. Do not take double or extra doses. Where should I keep my medicine? Keep out of reach of children. Store at room temperature between 20 and 25 degrees C (68 and 77 degrees F). Protect from moisture and heat. Throw away any unused medicine after the expiration date. What should I tell my health care provider before I take this medicine? They need to know if you have any of these conditions: if you frequently drink alcohol containing drinks liver disease an unusual or allergic reaction to acetaminophen, other medicines, foods, dyes or preservatives or trying to get breast-feeding What should I watch for while using this medicine? Tell your doctor or health in home caregiver if the pain lasts more than 10 days (5 days for children), if it gets worse, or if there is a new or different kind of pain. Also, check with your doctor if a fever lasts for more than 3 days. Do not take other medicines that contain acetaminophen with this medicine. Always read labels carefully. If you have questions, ask your doctor or pharmacist. If you take too much acetaminophen get medical help right away. Too much acetaminophen can be very dangerous and cause liver damage. Even if you do not have symptoms, it is important to get help right away. Ibuprofen Oral tablet What is this medicine? IBUPROFEN (eye BYOO proe fen) is a non-steroidal anti-inflammatory drug (NSAID). It is used for dental pain, fever, headaches or migraines, osteoarthritis, rheumatoid arthritis, or painful monthly periods. It can also relieve minor aches and pains caused by a cold, flu, or sore throat. How should I use this medicine? Take this medicine by mouth with a glass of water. Follow the directions on the prescription label. Take this medicine with food if your stomach gets upset. Try to not lie down for at least 10 minutes after you take the medicine. Take your medicine at regular intervals. Do not take your medicine more often than directed. A special MedGuide will be given to you by the pharmacist with each prescription and refill. Be sure to read this information carefully each time. Talk to your regional education coordinator regarding the use of this medicine in children. Special care may be needed. What side effects may I notice from receiving this medicine? Side effects that you should report to your doctor or health in home caregiver as soon as possible: allergic reactions like skin rash, itching or hives, swelling of the face, lips, or tongue black or bloody stools, blood in the urine or in vomit breathing problems changes in vision chest pain general ill feeling or flu-like symptoms nausea or vomiting redness, blistering, peeling or loosening of the skin, including inside the mouth slurred speech or weakness on one side of the body stomach pain unexplained weight gain or swelling unusually weak or tired yellowing of eyes or skin Side effects that usually do not require medical attention (report to your doctor or health in home caregiver if they continue or are bothersome): constipation or diarrhea dizziness gas or heartburn stomach upset What may interact with this medicine? Do not take this medicine with any of the following medications: cidofovir ketorolac methotrexate pemetrexed This medicine may also interact with the following medications: alcohol aspirin diuretics lithium other drugs for inflammation like prednisone warfarin What if I miss a dose? If you miss a dose, take it as soon as you can. If it is almost time for your next dose, take only that dose. Do not take double or extra doses. Where should I keep my medicine? Keep out of the reach of children. Store at room temperature between 15 and 30 degrees C (59 and 86 degrees F). Keep container tightly closed. Throw away any unused medicine after the expiration date. What should I tell my health care provider before I take this medicine? They need to know if you have any of these conditions: asthma cigarette smoker drink more than 3 alcohol containing drinks a day heart disease or circulation problems such as heart failure or leg edema (fluid retention) high blood pressure kidney disease liver disease stomach bleeding or ulcers an unusual or allergic reaction to ibuprofen, aspirin, other NSAIDS, other medicines, foods, dyes, or preservatives or trying to get breast-feeding What should I watch for while using this medicine? Tell your doctor or healthcare professional if your symptoms do not start to get better or if they get worse. This medicine does not prevent heart attack or stroke. In fact, this medicine may increase the chance of a heart attack or stroke. The chance may increase with longer use of this medicine and in people who have heart disease. If you take aspirin to prevent heart attack or stroke, talk with your doctor or health in home caregiver. Do not take other medicines that contain aspirin, ibuprofen, or naproxen with this medicine. Side effects such as stomach upset, nausea, or ulcers may be more likely to occur. Many medicines available without a prescription should not be taken with this medicine. This medicine can cause ulcers and bleeding in the stomach and intestines at any time during treatment. Ulcers and bleeding can happen without warning symptoms and can cause . To reduce your risk, do not smoke cigarettes or drink alcohol while you are taking this medicine. You may get drowsy or dizzy. Do not drive, use machinery, or do anything that needs mental alertness until you know how this medicine affects you. Do not stand or sit up quickly, especially if you are an older patient. This reduces the risk of dizzy or fainting spells. This medicine can cause you to bleed more easily. Try to avoid damage to your teeth and gums when you brush or floss your teeth. You have been given the following additional information: Febrile Illness, Uncertain Cause (Adult) Asthma, Acute (Adult) Bronchitis, Antiobiotic Treatment (Adult) Smoking Cessation Albuterol Sulfate Pressurized inhalation, suspension Prednisone Oral tablet Azithromycin Oral tablet Acetaminophen Oral tablet Ibuprofen Oral tablet (Electronically signed by Sharath Woods MD 04/28/2017 21:30)
--- NOTE | 2017-04-28 21:30 | ED MED RECONCILIATION SUMMARY ---
Patient: BROOK KEARNEY Medication Reconciliation Report [facility] VisitID: [id number] [address] [place] [address] 26y, F Registration Date/Time: 04/27/2017 Weight: 131.5 kg Height/Length: 65 in. BMI: 48.3 ALLERGIES: Amoxicillin, Compazine, Latex, Metformin, Methocarbamol, Morphine Sulfate, Phenergan The patient's Home Medications are listed below: THE FOLLOWING MEDICATIONS NEED TO BE RECONCILED: Albuterol Sulfate HFA Inhalation, neb used as well at times FentaNYL Transdermal 12mcg/hr, every 72 hours Gabapentin Oral 300 mg, 3x a day Promethazine HCl Oral 25 mg, 4x a day QUEtiapine Fumarate Oral Sertraline HCl Oral 250mg at HS TraZODone HCl Oral 200mg , at bedtime The source(s) of the original Home Medication information: other The following Medications were given to the patient in the Emergency Department: Albuterol [Neb Tx] Neb TX 1 unit dose, administered: 04/27/2017 9:00:00 PM Acetaminophen [PO] PO 1000 mg, administered: 04/27/2017 9:04:00 PM Zofran [IVP] IVP 4 mg, administered: 04/27/2017 8:55:00 PM SOLU-MEDROL [IVP] IVP 125 mg, administered: 04/27/2017 8:59:00 PM The following Medications were prescribed to the patient: Acetaminophen (available over the counter): take according to label instructions. -- Sharath Woods MD Motrin (available over the counter): take according to label instructions. -- Sharath Woods MD Albuterol HFA oral inhaler: inhale 2 puffs via spacer every 4 hours. Dispense one (1) unit. No refill. -- Sharath Woods MD Prednisone 20 mg: take 3 orally every day for 5 days. Dispense fifteen (15). No refills. -- Sharath Woods MD Zithromax 250 mg tablets: take 2 orally today, followed by 1 daily for the next 4 days. No refills. Substitution is permissible. -- Sharath Woods MD
--- NOTE | 2017-04-28 21:30 | ED MED RECONCILIATION SUMMARY ---
Patient: BROOK KEARNEY Medication Reconciliation Report [facility] VisitID: [id number] [address] [place] [address] 26y, F Registration Date/Time: 04/27/2017 Weight: 131.5 kg Height/Length: 65 in. BMI: 48.3 ALLERGIES: Amoxicillin, Compazine, Latex, Metformin, Methocarbamol, Morphine Sulfate, Phenergan The patient's Home Medications are listed below: THE FOLLOWING MEDICATIONS NEED TO BE RECONCILED: Albuterol Sulfate HFA Inhalation, neb used as well at times FentaNYL Transdermal 12mcg/hr, every 72 hours Gabapentin Oral 300 mg, 3x a day Promethazine HCl Oral 25 mg, 4x a day QUEtiapine Fumarate Oral Sertraline HCl Oral 250mg at HS TraZODone HCl Oral 200mg , at bedtime The source(s) of the original Home Medication information: other The following Medications were given to the patient in the Emergency Department: Albuterol [Neb Tx] Neb TX 1 unit dose, administered: 04/27/2017 9:00:00 PM Acetaminophen [PO] PO 1000 mg, administered: 04/27/2017 9:04:00 PM Zofran [IVP] IVP 4 mg, administered: 04/27/2017 8:55:00 PM SOLU-MEDROL [IVP] IVP 125 mg, administered: 04/27/2017 8:59:00 PM The following Medications were prescribed to the patient: Acetaminophen (available over the counter): take according to label instructions. -- Sharath Woods MD Motrin (available over the counter): take according to label instructions. -- Sharath Woods MD Albuterol HFA oral inhaler: inhale 2 puffs via spacer every 4 hours. Dispense one (1) unit. No refill. -- Sharath Woods MD Prednisone 20 mg: take 3 orally every day for 5 days. Dispense fifteen (15). No refills. -- Sharath Woods MD Zithromax 250 mg tablets: take 2 orally today, followed by 1 daily for the next 4 days. No refills. Substitution is permissible. -- Sharath Woods MD
--- NOTE | 2017-04-28 21:30 | ED MAR SUMMARY ---
..... Medication Administration Record [facility] [address] [place] [address] Patient: BROOK KEARNEY Visit ID: [id number] 26y, F Weight: 131.5 kg Height/Length: 65 in BMI: 48.3 ALLERGIES: Amoxicillin, Compazine, Latex, Metformin, Methocarbamol, Morphine Sulfate, Phenergan Given 20:55 04/27/2017 Veronica Alves R.N. Medication Administered: ZOFRAN [IVP] (ONDANSETRON HCL), Dose: 4 mg IVP over 2 minute(s), Site: #1 left forearm. Medication Ordered: Zofran IV 4 mg (NOW). Given 20:59 04/27/2017 Veronica Alves R.N. Medication Administered: SOLU-MEDROL [IVP] (METHYLPREDNISOLONE SODIUM SUCC), Dose: 125 mg IVP over 2 minute(s), Site: #1 left forearm. Medication Ordered: Solu-MEDROL IV 125 mg (NOW). Given 21:00 04/27/2017 Veronica Alves R.N., Stop 21:05 04/27/2017 Veronica Alves R.N. Medication Administered: ALBUTEROL [NEB TX], Dose: 1 unit dose Nebulizer Neb TX. Medication Ordered: Albuterol Neb Tx 1 unit dose (NOW). Given 21:04 04/27/2017 Veronica Alves R.N. Medication Administered: ACETAMINOPHEN [PO] (APAP), Dose: 1000 mg Tablets PO. Medication Ordered: Acetaminophen PO 1,000 mg (NOW).
--- NOTE | 2017-04-28 21:30 | ED MAR SUMMARY ---
..... Medication Administration Record [facility] [address] [place] [address] Patient: BROOK KEARNEY Visit ID: [id number] 26y, F Weight: 131.5 kg Height/Length: 65 in BMI: 48.3 ALLERGIES: Amoxicillin, Compazine, Latex, Metformin, Methocarbamol, Morphine Sulfate, Phenergan Given 20:55 04/27/2017 Veronica Alves R.N. Medication Administered: ZOFRAN [IVP] (ONDANSETRON HCL), Dose: 4 mg IVP over 2 minute(s), Site: #1 left forearm. Medication Ordered: Zofran IV 4 mg (NOW). Given 20:59 04/27/2017 Veronica Alves R.N. Medication Administered: SOLU-MEDROL [IVP] (METHYLPREDNISOLONE SODIUM SUCC), Dose: 125 mg IVP over 2 minute(s), Site: #1 left forearm. Medication Ordered: Solu-MEDROL IV 125 mg (NOW). Given 21:00 04/27/2017 Veronica Alves R.N., Stop 21:05 04/27/2017 Veronica Alves R.N. Medication Administered: ALBUTEROL [NEB TX], Dose: 1 unit dose Nebulizer Neb TX. Medication Ordered: Albuterol Neb Tx 1 unit dose (NOW). Given 21:04 04/27/2017 Veronica Alves R.N. Medication Administered: ACETAMINOPHEN [PO] (APAP), Dose: 1000 mg Tablets PO. Medication Ordered: Acetaminophen PO 1,000 mg (NOW).
== END 2017-04-27 22:14 | disposition home or self-care (01) ==
LOC: ED SRH 18:05
DX: J45.909 Unspecified asthma, uncomplicated (principal); J20.9 Acute bronchitis, unspecified; R50.9 Fever, unspecified; F17.210 Nicotine dependence, cigarettes, uncomplicated; I10 Essential (primary) hypertension; Z79.899 Other long term (current) drug therapy; Z88.8 Allergy status to other drugs, medicaments and biological substances; Z88.5 Allergy status to narcotic agent; Z88.1 Allergy status to other antibiotic agents
CPT/HCPCS: 90004; 90100; 90469; 90616; 91320; 91556; 92235; 92530; 92610; 92760; 92761; 92762; 92763; 92764; 92765; 92766; 92767; 93070; 95059